=== PATIENT | female | born 1955 | race Caucasian/White ===

== ENCOUNTER 2019-04-06 12:27 | Inpatient (IN) | payer MEDICAID ==
[~2019-04-06] VITALS: Ht 154.9 cm; Wt 67.0 kg
[~2019-04-06 12:27] MED LIST: ACYC800T5 PO; HYDR-906 PO; MECL-77 PO; PRED20TA PO
[2019-04-06] MEDS ORDERED: SOD CHLORIDE 0.9% 1,000 ML IV STA (12:39)
[2019-04-06] MEDS ORDERED: DILTIAZEM 25 MG INJ IV ONE (13:00)
[2019-04-06] MEDS ORDERED: LORAZEPAM 2 MG INJ IV ONE (13:30)
[2019-04-06] MEDS ORDERED: INSULIN LISPRO 100 UNIT/ML VIAL SC STA (14:22)
[2019-04-06] MEDS ORDERED: CEFEPIME 1GM/50 ML (PMX) 50 ML IVPB STA (14:23)
[2019-04-06] MEDS ORDERED: VANCOMYCIN 1 GM (PMX) 250 ML IVPB STA (14:23)
[2019-04-06] MEDS ORDERED: ADENOSINE 6 MG INJ IV STA ×2 (14:26)
[2019-04-06] MEDS ORDERED: ASPI81TA52 PO (14:27)
[2019-04-06] MEDS ORDERED: LOSA50TA14 PO (14:27)
[2019-04-06] MEDS ORDERED: INSU100I12 SQ ×2 (14:27→20:10)
[2019-04-06] MEDS ORDERED: GABA300C16 PO (14:28)
[2019-04-06] MEDS ORDERED: INSU100I27 SQ (14:28)
[2019-04-06] MEDS ORDERED: ESCI10TA PO (14:29)
[2019-04-06] MEDS ORDERED: AMIODARONE 150MG/D5W BOLUS IV* STA (14:42)
[2019-04-06] MEDS ORDERED: DIAZEPAM 5 MG/ML SYG IV ONE (15:30)
[2019-04-06] MEDS ORDERED: ACETAMINOPHEN 325 MG TAB PO PRN (16:00)
[2019-04-06] MEDS ORDERED: ONDANSETRON 4 MG INJ IV PRN (16:00)
--- NOTE | 2019-04-06 16:00 | ERD ---
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 NO TRAUMA. NO NEURO DEFICIT ON ARRIVAL HPI This is a 64-year-old female that presented to the emergency department from an assisted living facility. Patient presented to the emergency department as she had been complaining of dizziness according to nursing staff 1 hour prior to arrival. Vital signs were taken and the patient was tachycardic. When EMS arrived they obtained an EKG tracing that indicated atrial flutter at 165 bpm. The patient denies any chest pain. She has no shortness of breath. She denies any difficulty breathing. The patient has a tobacco history of 15 cigarettes a day. She denies any swelling of her lower extremities. She denies a headache. At this time the patient also denies any dizziness. She states she is hungry and is requesting something to eat. She denies any polyuria or polydipsia ROS All systems reviewed and are negative except as per history of present illness. Medications Home Meds Reported Medications Escitalopram Oxalate* (Lexapro*) 10 Mg Tablet, 10 MG PO DAILY, #30 TAB 04/06/19 Gabapentin* (Gabapentin*) 300 Mg Capsule, 300 MG PO BID, #60 CAP 04/06/19 Insulin Detemir (Levemir Flextouch) 100 Unit/1 Ml Insuln.pen, 42 UNIT SQ QHS, EA 04/06/19 Insulin Lispro (Humalog Kwikpen U-100) 100 Unit/1 Ml Insuln.pen, 15 UNIT SQ BID WITH MEALS, EA 04/06/19 Losartan Potassium* (Losartan Potassium*) 50 Mg Tablet, 50 MG PO DAILY, TAB 04/06/19 Aspirin (Low Dose Aspirin) 81 Mg Tablet.dr, 81 MG PO DAILY, #30 TAB 04/06/19 Discontinued Scripts Meclizine Hcl* (Meclizine Hcl*) 25 Mg Tablet, 25 MG PO Q8H PRN for DIZZINESS for 10 Days, TAB Prov:LENI MASSEY DO 05/17/16 Hydrocodone Bit-Acetaminophen ([place]) 5-325 Mg Tablet, 1 TAB PO Q4H PRN for PAIN, #14 TAB Prov:LENI MASSEY DO 05/17/16 Prednisone* (Prednisone*) 20 Mg Tab, 20 MG PO DAILY for 7 Days, TAB Prov:LENI MASSEY DO 05/17/16 Acyclovir* (Zovirax*) 800 Mg Tablet, 800 MG PO 5 TIMES DAILY for 7 Days, TAB Prov:LENI MASSEY DO 05/17/16 Meclizine Hcl* (Meclizine Hcl*) 25 Mg Tablet, 25 MG PO TID, #20 TAB Prov:LUCIEN ZARATE MD 11/26/15 Allergies Allergies: Coded Allergies: No Known Allergy (Unverified , 04/06/19) PMhx/Soc Hx Miscellaneous Medical Probl: Yes (DM, CATARACTS) Hx Alcohol Use: No Hx Substance Use: No Hx Tobacco Use: No Physical Exam Vitals Vital Signs Date Temp Pulse Resp B/P (MAP) Pulse Ox O2 O2 Flow FiO2 Time Delivery Rate 04/06/19 3.0 14:17 04/06/19 98.2 162 20 104/86 100 12:39 (92) Physical Exam Constitutional:Well-developed. Well-nourished. HEENT:Normocephalic. Atraumatic.Pupils were equal round reactive to light. Moist mucous membranes.No tonsillar exudates. Poor oral dentition Neck: No nuchal rigidity. No lymphadenopathy. No posterior cervical spine tenderness or step-offs. Respiratory: Not using accessory muscles of respiration.Lungs were clear to auscultation bilaterally. No rhonchi. No rales. No wheezing. Cardiovascular: Tachycardic with regular rhythm.No murmurs. No rubs were appreciated.S1, S2 normal. Distal pulses are palpable 2+ bilaterally. GI: Abdomen was soft. Nontender. Non Distended. No pulsatile abdominal masses or bruits. No rebound. No guarding. Bowel sounds were present and normal. Muscle skeletal: Full range of motion of both the upper and lower extremities bilaterally.Normal muscle tone.No assymetrical calf tenderness or swelling. Skin: No petechia, no purpura. No lesions on the palms or the soles of the feet. No maculopapular rash. NEURO: Patient was alert, awake, orientated x3.No facial droop. Gait not observed.Speech had regular rate and rhythm. No focal neurological deficits. Result Diagram: 04/06/19 1248 04/06/19 1248 Results 24 hrs Laboratory Tests Test 04/06/19 12:48 04/06/19 12:57 04/06/19 13:53 04/06/19 15:13 White Blood Count 10.5 10^3/ul Red Blood Count 4.16 10^6/ul Hemoglobin 13.5 g/dl Hematocrit 39.9 % Mean Corpuscular 95.9 fl Volume Mean Corpuscular 32.5 pg Hemoglobin Mean Corpuscular 33.8 g/dl Hemoglobin Concen t Red Cell 13.0 % Distribution Width Platelet Count 226 10^3/UL Mean Platelet 8.8 fl Volume Immature 0.300 % Granulocytes % Neutrophils % 65.2 % Lymphocytes % 24.4 % Monocytes % 7.8 % Eosinophils % 1.5 % Basophils % 0.8 % Nucleated Red 0.0 /100WBC Blood Cells % Immature 0.030 10^3/ul Granulocytes # Neutrophils # 6.9 10^3/ul Lymphocytes # 2.6 10^3/ul Monocytes # 0.8 10^3/ul Eosinophils # 0.2 10^3/ul Basophils # 0.1 10^3/ul Nucleated Red 0.0 10^3/ul Blood Cells # Prothrombin Time 13.0 Sec Prothrombin Time 1.0 Ratio INR International 0.97 Normalized Ratio Activated 29.7 Sec Partial Thrombopl ast Time Sodium Level 135 mmol/L Potassium Level 4.3 mmol/L Chloride Level 102 mmol/L Carbon Dioxide 25 mmol/L Level Anion Gap 8 Blood Urea 27 mg/dl Nitrogen Creatinine 1.02 mg/dl Est Glomerular 54 mL/min Filtrat Rate mL/min Glucose Level 311 mg/dl Calcium Level 9.1 mg/dl Total Bilirubin 0.5 mg/dl Direct Bilirubin 0.00 mg/dl Indirect 0.5 mg/dl Bilirubin Aspartate Amino 20 IU/L Transf (AST/SGOT) Alanine 23 IU/L Aminotransferase (ALT/SGPT) Alkaline 67 IU/L Phosphatase Creatine Kinase 62 IU/L Creatine Kinase 2.0 Index Creatinine Kinase 1.26 ng/ml MB (Mass) Troponin I < 0.012 ng/ml B-Type 2750 PG/ML Natriuretic Peptide Total Protein 6.9 g/dl Albumin 4.0 g/dl Globulin 2.90 g/dl Albumin/Globulin 1.37 Ratio Lipase 136 U/L Salicylates Level 1.9 mg/dl Acetaminophen < 10.0 ug/ml Level Ethyl Alcohol < 10.0 mg/dl Level Bedside Glucose 322 mg/dL Urine Opiates Negative Screen Urine Negative Barbiturates Urine Negative Amphetamines Screen Urine Negative Benzodiazepines Screen Urine Cocaine Negative Screen Urine Negative Cannabinoids Urine Color STRAW Urine Clarity SLIGHTLY CLOUDY Urine pH 5.0 Urine Specific 1.005 [place] Urine Ketones NEGATIVE mg/dL Urine Nitrite NEGATIVE mg/dL Urine Bilirubin NEGATIVE mg/dL Urine NEGATIVE mg/dL Urobilinogen Urine Leukocyte 2+ Park/ul Esterase Urine Microscopic 1 /HPF RBC Urine Microscopic 10 /HPF WBC Urine Squamous FEW /HPF Epithelial Cells Urine Hemoglobin 1+ mg/dL Urine Glucose 2+ mg/dL Urine Total NEGATIVE mg/dl Protein Test 04/06/19 15:40 Bedside Glucose 239 mg/dL Current Medications Medications Dose Sig/Endy Start Time Status Last (Trade) Ordered Route PRN Stop Time Admin Dose Reason Admin Sodium 1,000 ml @ Q1H STAT 04/06/19 DC 04/06/19 Chloride 1,000 mls/hr IV 12:39 13:26 04/06/19 13:38 Diltiazem 20 mg ONCE ONCE 04/06/19 DC 04/06/19 HCl IV 13:00 13:26 (Cardizem Iv) 04/06/19 13:01 Lorazepam 0.5 mg ONCE ONCE 04/06/19 Cancel (Ativan) IV 13:30 04/06/19 13:31 Insulin 5 unit ONCE STAT 04/06/19 DC Human SC 14:22 Lispro 04/06/19 15:45 (Humalog) Cefepime HCl 50 ml @ ONCE STAT 04/06/19 DC 04/06/19 100 mls/hr IVPB 14:23 14:59 04/06/19 14:52 Vancomycin 250 ml @ ONCE STAT 04/06/19 HCl 125 mls/hr IVPB 14:23 04/06/19 16:22 Adenosine 6 mg ONCE STAT 04/06/19 DC 04/06/19 (Adenosine) IV 14:26 14:45 04/06/19 14:28 Adenosine 12 mg ONCE STAT 04/06/19 DC 04/06/19 (Adenosine) IV 14:26 14:55 04/06/19 14:28 Amiodarone 100 ml ONCE STAT 04/06/19 DC 04/06/19 HCl IV* 14:42 14:59 (Cordarone 04/06/19 14:45 150mg/ D5W Bolus) Diazepam 10 mg ONCE ONCE 04/06/19 DC 04/06/19 (Valium) IV 15:30 15:41 04/06/19 15:31 Procedures/MDM This patient was seen and evaluated by myself. The patient presented to the emergency department complaining of dizziness. My differential diagnosis in cluded but was not limited to hypovolemia, myocardial infarction, pulmonary embolism, hypoglycemia, hypoxia, anemia, vasovagal episode, hypothyroidism, anxiety, peripheral or central vertigo. The patient was placed on a monitor and storage bin tender, continuous pulse oximetry and IV access established by nursing staff. An EKG was immediately obtained as the patient was tachycardic upon arrival. 12 Lead EKG tracing ordered and reviewed by myself showed: Sinus tachycardia at 163 bpm and no arrhythmia. ND interval difficult to appreciate as I did not notice P waves. However the EKG machine indicated peer interval was shortened at 88 ms. QRS duration normal. No ST segment elevation No ST segment depression. No changes consistent with acute ischemia. My first EKG was taken at 1232. I administered 20 mg of Cardizem intravenously in order to evaluate for possible atrial flutter with RVR. The patient became hypotensive after but was alert awake and orientated x3. The patient had another large-bore IV catheter placed by nursing staff. She was given a liter bolus of normal saline. Her blood pressure did improve. I repeated the patient's EKG at 1421. At this time it appeared to be a supraven tricular tachycardia ventricular rate was 159 bpm I still do not appreciate P waves. However QRS duration was not completely narrowed as was on the lower end of normal at 90 ms. I did administer 6 mg of adenosine intravenously. This did not change her rhythm. I administered 12 mg of adenosine intravenously. There is no change in the patient's rhythm. The patient had a chest radiograph that showed mild pulmonary vascular congestion. The patient had possible infiltrates that appeared to be more chronic in nature however given her symptoms she will be treated for pneumonia. Blood cultures and urine cultures were obtained. She was started on vancomycin and cefepime she does live in assisted living facility. The patient was hyperglycemic without ketosis. This had been treated with IV fluids. She did not complain of any difficulty breathing. There is no wheezing on auscultation and no rhonchi. Therefore bronchodilators were not given at this time. She did not appear to be fluid overloaded despite giving gentle IV fluid hydration. The patient continued to be tachycardic. There is a tachyarrhythmia and the patient had the persistent tachyarrhythmia with hypotension. Therefore at this time I did perform synchronized cardioversion. The patient was given 5 mg of Valium intravenously for sedation. Given that this appeared to be more of a regular narrow complex the patient received 50 J as the initial synchronized cardioversion. Immediately afterwards the patient appeared to have a normal sinus rhythm. EKG was repeated at 1531. Heart rate was 76 bpm. There is no ST segment elevation or depression. I could not rule out underlying flutter waves. P waves were now appreciated. Interval was [address] Adkins was now at bedside. He will be the admitting physician. I did feel the patient was stable to go the telemetry service. The patient did require supplemental oxygen given 2 L nasal cannula. My suspicion was low for pulmonary embolism. Critical Care: Time: 95 minutes Treatments/Evaluations: Close monitoring and treatment of unstable vital signs, cardiorespiratory, and neurologic status, while maintaining tight balance of fluid, respiratory, and cardiac interventions. Time does not include performing any of the above billable procedures. Departure Diagnosis: Primary Impression: Tachyarrhythmia Additional Impressions: Hyperglycemia without ketosis CHF exacerbation Heart failure type: unspecified Qualified Codes: I50.9 - Heart failure, unspecified Pneumonia Pneumonia type: due to unspecified organism Laterality: bilateral Lung location: unspecified part of lung Qualified Codes: J18.9 - Pneumonia, unspecified organism Condition: Serious LUCIEN ZARATE MD April 06, 2019 15:57
--- NOTE | 2019-04-06 16:20 | HP ---
Date/Time of Note Date/Time of Note DATE: 04/06/19 TIME: 16:06 Assessment/Plan VTE Prophylaxis SCD applied (from Nsg): Yes Pharmacological prophylaxis: heparin Assessment/Plan Hospital Course 64 yo female with DMII and otherwise unclear PMH presents with SVT now s/p DCCV A Flutter: - Confirm rhythm wtih cardiology - Start beta blockers - Likely will require AC - TTE pending DMII - Basal/bolus insulin Pulmonary edema vs ILD; - Lasix, consider chest CT Further evaluation once Versed wears off Result Diagram: 04/06/19 1248 04/06/19 1248 Results 24hrs Laboratory Tests Test 04/06/19 12:48 04/06/19 12:57 04/06/19 13:53 04/06/19 15:13 White Blood Count 10.5 # Red Blood Count 4.16 L Hemoglobin 13.5 Hematocrit 39.9 Mean Corpuscular 95.9 Volume Mean Corpuscular 32.5 Hemoglobin Mean Corpuscular 33.8 Hemoglobin Concen t Red Cell 13.0 Distribution Width Platelet Count 226 Mean Platelet 8.8 # Volume Immature 0.300 Granulocytes % Neutrophils % 65.2 Lymphocytes % 24.4 Monocytes % 7.8 Eosinophils % 1.5 Basophils % 0.8 Nucleated Red 0.0 Blood Cells % Immature 0.030 Granulocytes # Neutrophils # 6.9 Lymphocytes # 2.6 Monocytes # 0.8 Eosinophils # 0.2 Basophils # 0.1 Nucleated Red 0.0 Blood Cells # Prothrombin Time 13.0 Prothrombin Time 1.0 Ratio INR International 0.97 Normalized Ratio Activated 29.7 Partial Thrombopl ast Time Sodium Level 135 Potassium Level 4.3 Chloride Level 102 Carbon Dioxide 25 Level Anion Gap 8 Blood Urea 27 H Nitrogen Creatinine 1.02 H Est Glomerular 54 L Filtrat Rate mL/min Glucose Level 311 H Calcium Level 9.1 Total Bilirubin 0.5 Direct Bilirubin 0.00 Indirect 0.5 Bilirubin Aspartate Amino 20 Transf (AST/SGOT) Alanine 23 Aminotransferase (ALT/SGPT) Alkaline 67 Phosphatase Creatine Kinase 62 Creatine Kinase 2.0 Index Creatinine Kinase 1.26 MB (Mass) Troponin I < 0.012 B-Type 2750 H Natriuretic Peptide Total Protein 6.9 Albumin 4.0 Globulin 2.90 Albumin/Globulin 1.37 Ratio Lipase 136 Salicylates Level 1.9 L Acetaminophen < 10.0 L Level Ethyl Alcohol < 10.0 H Level Bedside Glucose 322 H Urine Opiates Negative Screen Urine Negative Barbiturates Urine Negative Amphetamines Screen Urine Negative Benzodiazepines Screen Urine Cocaine Negative Screen Urine Negative Cannabinoids Urine Color STRAW Urine Clarity SLIGHTLY CLOUDY A Urine pH 5.0 Urine Specific 1.005 [place] Urine Ketones NEGATIVE Urine Nitrite NEGATIVE Urine Bilirubin NEGATIVE Urine NEGATIVE Urobilinogen Urine Leukocyte 2+ H Esterase Urine Microscopic 1 RBC Urine Microscopic 10 H WBC Urine Squamous FEW Epithelial Cells Urine Hemoglobin 1+ H Urine Glucose 2+ H Urine Total NEGATIVE Protein Test 04/06/19 15:40 Bedside Glucose 239 H HPI/ROS Admit Date/Time Admit Date/Time Hx of Present Illness 64 female with unclear medical history who [facility] with dizziness Patient currently sedated and is unable to provide history. She presented with tachycardia at about 150s. Narrow complex and regular, likely A Flutter. She was given adenosine, diltiazem, and then amiodarone without benefit. Finally she was given versed then DCCV to NSR at 70 bpm. Currently sedated and resting comcortably ROS Constitutional: no complaints, improved Eyes: no complaints ENT: no complaints Respiratory: no complaints Cardiovascular: no complaints Gastrointestinal: no complaints Genitourinary: no complaints Musculoskeletal: no complaints Skin: no complaints Neurologic: no complaints Endocrine: no complaints Lymphatic: no complaints Psychological: no complaints, nl mood/affect Immunologic: no complaints PMH/Family/Social Past Medical History Medical History: no pertinent history Medications Current Medications Vancomycin HCl 250 ml @ 125 mls/hr ONCE STAT IVPB Last administered on 04/06/19at 15:53; Admin Dose 125 MLS/HR; Start 04/06/19 at 14:23; Stop 04/06/19 at 16:22 Ondansetron HCl (Zofran Inj) 4 mg ER BRIDGE PRN IV NAUSEA/VOMITING; Start at 16:00; Stop 04/07/19 at 15:59 Acetaminophen (Tylenol Tab) 650 mg ER BRIDGE PRN PO .MILD PAIN 1-3 OR TEMP; Start 04/06/19 at 16:00; Stop 04/07/19 at 15:59 Coded Allergies: No Known Allergy (Unverified , 04/06/19) Past Surgical History Past Surgical Hx: no surgical history Family History Significant Family History: no pertinent family hx Social History Alcohol Use: none Exam/Review of Systems Vital Signs Vitals Vital Signs Date Temp Pulse Resp B/P (MAP) Pulse Ox O2 O2 Flow FiO2 Time Delivery Rate 04/06/19 3.0 14:17 04/06/19 98.2 162 20 104/86 100 12:39 (92) Exam Exam Sedated Comfortable RRR Lungs clear JVD perhpas mildly elevated Abdomen soft nt nd Ext without edema SUSHILA GRIMES MD April 06, 2019 16:20
[2019-04-06] MEDS ORDERED: HYDROCODONE/APAP (5/325) TAB PO PRN (16:30)
[2019-04-06] MEDS ORDERED: NACL 0.9% 3 ML SYG IV SCH (16:30)
[2019-04-06] MEDS ORDERED: GLUCOSE GEL 15 GRAM TUBE BUCCAL PRN (17:30)
[2019-04-06] MEDS ORDERED: DEXTROSE 50% 50 ML SYRINGE IV PRN ×2 (17:30)
[2019-04-06] MEDS ORDERED: GLUCOSE GEL 15 GRAM TUBE PO PRN ×2 (17:30)
[2019-04-06] MEDS ORDERED: GLUCAGON 1 MG INJ IM PRN (17:30)
[2019-04-06 19:40] VITALS: PULSE 82
[2019-04-06 20:00] VITALS: BP 150/90; PULSE 81; PULSE 82; RESP 20
[2019-04-06 20:03] VITALS: Ht 154.9 cm; Wt 67.0 kg
[2019-04-06] MEDS ORDERED: TEMA30CA PO (20:15)
[2019-04-06] MEDS: METOPROLOL 50 MG TAB PO SCH (22:24)
[2019-04-06] MEDS: INSULIN ASPART [NOVOLOG] 3 ML PEN SC SCH ×3 (22:31→22:45)
[2019-04-06] MEDS: INSULIN GLARGINE [LANTus] (100 UNITS/ML) SYG SC SCH (23:31)
[2019-04-06] MEDS ORDERED: TRAZ-111 PO (23:36)
[2019-04-07] VITALS (11 sets, daily range): BP systolic 96–140; BP diastolic 56–69; PULSE 58–88; RESP 18–19
[2019-04-07] MEDS: traZODone 50 MG TAB PO PRN ×2 (00:44→21:02)
[2019-04-07] MEDS ORDERED: PENDING SANTYL ORDER FOR WOUND CARE XX PRN (01:30)
[2019-04-07] MEDS: INSULIN ASPART [NOVOLOG] 3 ML PEN SC SCH ×7 (07:55→20:15)
[2019-04-07] MEDS: ESCITALOPRAM 10 MG TAB PO SCH (08:32)
[2019-04-07] MEDS: LOSARTAN 50 MG TAB PO SCH (08:32)
[2019-04-07] MEDS: METOPROLOL 50 MG TAB PO SCH ×2 (08:32→20:15)
[2019-04-07] MEDS: FUROSEMIDE 20 MG INJ IV SCH ×2 (08:35→18:14)
[2019-04-07] MEDS ORDERED: ENOXAPARIN 30 MG/0.3 ML SYG SC SCH (09:00)
[2019-04-07] MEDS ORDERED: ASPIRIN (EC) 81 MG TAB PO SCH (09:00)
--- NOTE | 2019-04-07 10:00 | CONS ---
Assessment/Plan Assessment/Plan Assessment/Plan (Daily) Aflutter > NSR post cardioversion MIld CHF Possible PNA DM -d/c asa, d/c lovenox -rx eliquis -will review echocardigrom -iv lasix and may d/c in the am if EF normal -abx Consultation Date/Type/Reason Admit Date/Time Type of Consult Cardiology Date/Time of Note DATE: 04/07/19 TIME: 09:56 Hx of Present Illness This is a 64-year-old female that presented to the emergency department from an assisted living facility. Patient presented to the emergency department as she had been complaining of dizziness according to nursing staff 1 hour prior to arrival. Vital signs were taken and the patient was tachycardic. When EMS arrived they obtained an EKG tracing that indicated atrial flutter at 165 bpm. The patient denies any chest pain. She has no shortness of breath. She denies any difficulty breathing. The patient has a tobacco history of 15 cigarettes a day. She denies any swelling of her lower extremities. She denies a headache. At this time the patient also denies any dizziness. She states she is hungry and is requesting something to eat. She denies any polyuria or polydipsia. She has bno cardiac hx and presented wtih 30 mintues of palputations and failed medical therpay to treat the tachycarrythmia so cardivoerted to NSR Past Medical History Home Meds Reported Medications Trazodone Hcl* (Trazodone Hcl*) 50 Mg Tablet, 50 MG PO QHS PRN for INSOMNIA, #30 TAB 04/06/19 Temazepam* (Temazepam*) 30 Mg Capsule, 30 MG PO HS PRN for INSOMNIA, CAP 04/06/19 Insulin Lispro (Humalog Kwikpen U-100) 100 Unit/1 Ml Insuln.pen, 18 UNIT SQ WITH DINNER, EA 04/06/19 Escitalopram Oxalate* (Lexapro*) 10 Mg Tablet, 10 MG PO DAILY, #30 TAB 04/06/19 Gabapentin* (Gabapentin*) 300 Mg Capsule, 300 MG PO BID, #60 CAP 04/06/19 Insulin Detemir (Levemir Flextouch) 100 Unit/1 Ml Insuln.pen, 42 UNIT SQ QHS, EA 04/06/19 Insulin Lispro (Humalog Kwikpen U-100) 100 Unit/1 Ml Insuln.pen, 15 UNIT SQ WITH BREAKFAST, EA 04/06/19 Losartan Potassium* (Losartan Potassium*) 50 Mg Tablet, 50 MG PO DAILY, TAB 04/06/19 Aspirin (Low Dose Aspirin) 81 Mg Tablet.dr, 81 MG PO DAILY, #30 TAB 04/06/19 Discontinued Scripts Meclizine Hcl* (Meclizine Hcl*) 25 Mg Tablet, 25 MG PO Q8H PRN for DIZZINESS for 10 Days, TAB Prov:LENI MASSEY DO 05/17/16 Hydrocodone Bit-Acetaminophen ([place]) 5-325 Mg Tablet, 1 TAB PO Q4H PRN for PAIN, #14 TAB Prov:LENI MASSEY DO 05/17/16 Prednisone* (Prednisone*) 20 Mg Tab, 20 MG PO DAILY for 7 Days, TAB Prov:LENI MASSEY DO 05/17/16 Acyclovir* (Zovirax*) 800 Mg Tablet, 800 MG PO 5 TIMES DAILY for 7 Days, TAB Prov:LENI MASSEY DO 05/17/16 Meclizine Hcl* (Meclizine Hcl*) 25 Mg Tablet, 25 MG PO TID, #20 TAB Prov:LUCIEN ZARATE MD 11/26/15 Medications Current Medications Ondansetron HCl (Zofran Inj) 4 mg ER BRIDGE PRN IV NAUSEA/VOMITING; Start 04/06/19 at 16:00; Stop 04/07/19 at 15:59 Acetaminophen (Tylenol Tab) 650 mg ER BRIDGE PRN PO .MILD PAIN 1-3 OR TEMP; Start 04/06/19 at 16:00; Stop 04/07/19 at 15:59 IV Flush (NS 3 ml) 3 ml PER PROTOCOL IV ; Start 04/06/19 at 16:30 Acetaminophen/ Hydrocodone Bitart ([place] (5/325)) 1 tab Q6H PRN PO .MOD PAIN 4- 6; Start 04/06/19 at 16:30 Enoxaparin Sodium (Lovenox) 30 mg DAILY SC Last administered on 04/07/19at 08:30; Admin Dose 30 MG; Start 04/07/19 at 09:00 Insulin Glargine (Lantus) 11 units DAILY@2000 SC Last administered on 04/06/19at 23:31; Admin Dose 11 UNITS; Start 04/06/19 at 20:00 Insulin Aspart (Novolog Insulin Pen) 4 unit WITH MEALS SC Last administered on 04/07/19at 08:29; Admin Dose 4 UNIT; Start 04/06/19 at 18:00 Insulin Aspart (Novolog Insulin Pen) NOVOLOG *MODERATE* ALGORITHM WITH MEALS BEDTIME SC Last administered on 04/06/19at 22:45; Admin Dose 4 UNIT; Start 04/06/19 at 18:00 Metoprolol Tartrate (Lopressor) 50 mg BID PO Last administered on 04/07/19at 08:32; Admin Dose 50 MG; Start 04/06/19 at 21:00 Aspirin (Halfprin) 81 mg DAILY PO Last administered on 04/07/19 08:32; Admin Dose 81 MG; Start 04/07/19 at 09:00 Escitalopram Oxalate (Lexapro) 10 mg DAILY PO Last administered on 04/07/19at 08:32; Admin Dose 10 MG; Start 04/07/19 at 09:00 Losartan Potassium (Cozaar) 50 mg DAILY PO Last administered on 04/07/19at 08:32; Admin Dose 50 MG; Start 04/07/19 at 09:00 Miscellaneous Information 1 ea NOTE XX ; Start 04/06/19 at 17:30 Glucose (Glutose) 15 gm Q15M PRN PO DECREASED GLUCOSE; Start 04/06/19 at 17:30 Glucose (Glutose) 22.5 gm Q15M PRN PO DECREASED GLUCOSE; Start 04/06/19 at 17:30 Dextrose (D50w Syringe) 25 ml Q15M PRN IV DECREASED GLUCOSE; Start 04/06/19 at 17:30 Dextrose (D50w Syringe) 50 ml Q15M PRN IV DECREASED GLUCOSE; Start 04/06/19 at 17:30 Glucagon (Glucagen) 1 mg Q15M PRN IM DECREASED GLUCOSE; Start 04/06/19 at 17:30 Glucose (Glutose) 15 gm Q15M PRN BUCCAL DECREASED GLUCOSE; Start 04/06/19 at 17:30 Trazodone HCl (Desyrel) 50 mg HS PRN PO INSOMNIA Last administered on 04/07/19at 00:44; Admin Dose 50 MG; Start 04/07/19 at 00:30 Miscellaneous Information (Pending [facility] Order For Wound Care) This patient sam... PRN PRN XX WOUND CARE; Start 04/07/19 at 01:30 Furosemide (Lasix) 20 mg BID DIURETICS IV Last administered on 04/07/19at 08:35; Admin Dose 20 MG; Start 04/07/19 at 08:00 Allergies: Coded Allergies: ibuprofen (Verified Allergy, Mild, nausea/vomiting, 04/06/19) Penicillins (Verified Allergy, Unknown, unknown, 04/06/19) Past Surgical History Past Surgical Hx: no surgical history Social History Alcohol Use: none Smoking Status: Current every day smoker Exam/Review of Systems Vital Signs Vitals Vital Signs Date Temp Pulse Resp B/P (MAP) Pulse Ox O2 O2 Flow FiO2 Time Delivery Rate 04/07/19 69 08:01 04/07/19 98.2 18 110/66 90 07:19 (81) 04/07/19 Nasal 03:42 Cannula 04/06/19 2.0 20:00 Intake and Output 04/06/19 04/06/19 04/07/19 1515:00 23:00 07:00 IntakeIntake Total 300 ml BalanceBalance 300 ml Labs Result Diagram: 04/07/19 0624 04/07/19 0624 Results 24hrs Laboratory Tests Test 04/06/19 12:48 04/06/19 12:57 04/06/19 13:53 04/06/19 15:13 White Blood Count 10.5 # Red Blood Count 4.16 L Hemoglobin 13.5 Hematocrit 39.9 Mean Corpuscular 95.9 Volume Mean Corpuscular 32.5 Hemoglobin Mean Corpuscular 33.8 Hemoglobin Concen t Red Cell 13.0 Distribution Width Platelet Count 226 Mean Platelet 8.8 # Volume Immature 0.300 Granulocytes % Neutrophils % 65.2 Lymphocytes % 24.4 Monocytes % 7.8 Eosinophils % 1.5 Basophils % 0.8 Nucleated Red 0.0 Blood Cells % Immature 0.030 Granulocytes # Neutrophils # 6.9 Lymphocytes # 2.6 Monocytes # 0.8 Eosinophils # 0.2 Basophils # 0.1 Nucleated Red 0.0 Blood Cells # Prothrombin Time 13.0 Prothrombin Time 1.0 Ratio INR International 0.97 Normalized Ratio Activated 29.7 Partial Thrombopl ast Time Sodium Level 135 Potassium Level 4.3 Chloride Level 102 Carbon Dioxide 25 Level Anion Gap 8 Blood Urea 27 H Nitrogen Creatinine 1.02 H Est Glomerular 54 L Filtrat Rate mL/min Glucose Level 311 H Calcium Level 9.1 Total Bilirubin 0.5 Direct Bilirubin 0.00 Indirect 0.5 Bilirubin Aspartate Amino 20 Transf (AST/SGOT) Alanine 23 Aminotransferase (ALT/SGPT) Alkaline 67 Phosphatase Creatine Kinase 62 Creatine Kinase 2.0 Index Creatinine Kinase 1.26 MB (Mass) Troponin I < 0.012 B-Type 2750 H Natriuretic Peptide Total Protein 6.9 Albumin 4.0 Globulin 2.90 Albumin/Globulin 1.37 Ratio Lipase 136 Free Thyroxine 2.41 Index Thyroxine (T4) 6.3 Triiodothyronine 38.2 (T3) Uptake Salicylates Level 1.9 L Acetaminophen < 10.0 L Level Ethyl Alcohol < 10.0 H Level Bedside Glucose 322 H Urine Opiates Negative Screen Urine Negative Barbiturates Urine Negative Amphetamines Screen Urine Negative Benzodiazepines Screen Urine Cocaine Negative Screen Urine Negative Cannabinoids Urine Color STRAW Urine Clarity SLIGHTLY CLOUDY A Urine pH 5.0 Urine Specific 1.005 [place] Urine Ketones NEGATIVE Urine Nitrite NEGATIVE Urine Bilirubin NEGATIVE Urine NEGATIVE Urobilinogen Urine Leukocyte 2+ H Esterase Urine Microscopic 1 RBC Urine Microscopic 10 H WBC Urine Squamous FEW Epithelial Cells Urine Hemoglobin 1+ H Urine Glucose 2+ H Urine Total NEGATIVE Protein Test 04/06/19 15:40 04/06/19 19:54 04/06/19 22:11 04/06/19 23:27 Bedside Glucose 239 H 293 H 306 H 226 H Test 04/07/19 02:25 04/07/19 06:24 04/07/19 08:23 Bedside Glucose 83 134 White Blood Count 8.4 Red Blood Count 3.74 L Hemoglobin 11.9 L Hematocrit 36.5 L Mean Corpuscular 97.6 Volume Mean Corpuscular 31.8 Hemoglobin Mean Corpuscular 32.6 Hemoglobin Concen t Red Cell 13.4 Distribution Width Platelet Count 220 Mean Platelet 9.2 Volume Immature 0.400 Granulocytes % Neutrophils % 59.8 Lymphocytes % 26.9 Monocytes % 9.0 Eosinophils % 3.1 Basophils % 0.8 Nucleated Red 0.0 Blood Cells % Immature 0.030 Granulocytes # Neutrophils # 5.0 Lymphocytes # 2.3 Monocytes # 0.8 Eosinophils # 0.3 Basophils # 0.1 Nucleated Red 0.0 Blood Cells # Sodium Level 140 Potassium Level 4.2 Chloride Level 110 Carbon Dioxide 25 Level Anion Gap 5 Blood Urea 31 H Nitrogen Creatinine 1.10 H Est Glomerular 50 L Filtrat Rate mL/min Glucose Level 115 # Hemoglobin A1c 9.6 H Calcium Level 9.0 Total Bilirubin 0.5 Direct Bilirubin 0.00 Indirect 0.5 Bilirubin Aspartate Amino 15 Transf (AST/SGOT) Alanine 25 Aminotransferase (ALT/SGPT) Alkaline 55 Phosphatase Total Protein 6.2 Albumin 3.6 Globulin 2.60 Albumin/Globulin 1.38 Ratio Thyroid 2.660 Stimulating Hormone (TSH) Medications Medications Current Medications Ondansetron HCl (Zofran Inj) 4 mg ER BRIDGE PRN IV NAUSEA/VOMITING; Start 04/06/19 at 16:00; Stop 04/07/19 at 15:59 Acetaminophen (Tylenol Tab) 650 mg ER BRIDGE PRN PO .MILD PAIN 1-3 OR TEMP; Start 04/06/19 at 16:00; Stop 04/07/19 at 15:59 IV Flush (NS 3 ml) 3 ml PER PROTOCOL IV ; Start 04/06/19 at 16:30 Acetaminophen/ Hydrocodone Bitart ([place] (5/325)) 1 tab Q6H PRN PO .MOD PAIN 4- 6; Start 04/06/19 at 16:30 Enoxaparin Sodium (Lovenox) 30 mg DAILY SC Last administered on 04/07/19at 08:30; Admin Dose 30 MG; Start 04/07/19 at 09:00 Insulin Glargine (Lantus) 11 units DAILY@2000 SC Last administered on 04/06/19at 23:31; Admin Dose 11 UNITS; Start 04/06/19 at 20:00 Insulin Aspart (Novolog Insulin Pen) 4 unit WITH MEALS SC Last administered on 04/07/19 08:29; Admin Dose 4 UNIT; Start 04/06/19 at 18:00 Insulin Aspart (Novolog Insulin Pen) NOVOLOG *MODERATE* ALGORITHM WITH MEALS BEDTIME SC Last administered on 04/06/19at 22:45; Admin Dose 4 UNIT; Start 04/06/19 at 18:00 Metoprolol Tartrate (Lopressor) 50 mg BID PO Last administered on 04/07/19 08:32; Admin Dose 50 MG; Start 04/06/19 at 21:00 Aspirin (Halfprin) 81 mg DAILY PO Last administered on 04/07/19 08:32; Admin Dose 81 MG; Start 04/07/19 at 09:00 Escitalopram Oxalate (Lexapro) 10 mg DAILY PO Last administered on 04/07/19at 08:32; Admin Dose 10 MG; Start 04/07/19 at 09:00 Losartan Potassium (Cozaar) 50 mg DAILY PO Last administered on 04/07/19at 08:32; Admin Dose 50 MG; Start 04/07/19 at 09:00 Miscellaneous Information 1 ea NOTE XX ; Start 04/06/19 at 17:30 Glucose (Glutose) 15 gm Q15M PRN PO DECREASED GLUCOSE; Start 04/06/19 at 17:30 Glucose (Glutose) 22.5 gm Q15M PRN PO DECREASED GLUCOSE; Start 04/06/19 at 17:30 Dextrose (D50w Syringe) 25 ml Q15M PRN IV DECREASED GLUCOSE; Start 04/06/19 at 17:30 Dextrose (D50w Syringe) 50 ml Q15M PRN IV DECREASED GLUCOSE; Start 04/06/19 at 17:30 Glucagon (Glucagen) 1 mg Q15M PRN IM DECREASED GLUCOSE; Start 04/06/19 at 17:30 Glucose (Glutose) 15 gm Q15M PRN BUCCAL DECREASED GLUCOSE; Start 04/06/19 at 17:30 Trazodone HCl (Desyrel) 50 mg HS PRN PO INSOMNIA Last administered on 04/07/19at 00:44; Admin Dose 50 MG; Start 04/07/19 at 00:30 Miscellaneous Information ([facility] This patient sam... PRN PRN XX WOUND CARE; Start 04/07/19 at 01:30 Furosemide (Lasix) 20 mg BID DIURETICS IV Last administered on 04/07/19at 08:35; Admin Dose 20 MG; Start 04/07/19 at 08:00 RODRÍGUEZ ANGULO MD Apr 07, 2019 10:00
--- NOTE | 2019-04-07 10:43 | RADRPT ---
Echocardiogram Report Patient Name: Annie MARQUIStient ID: [id number] : 1955 (64y 1m)Study Date: 04/07/2019 9:07:11 AM Gender: FAccession #: [id number] Tech: Aureliano Pitts [facility] Location: [facility] Ref.Physician: SUSHILA GRIMES Height(Cm): BSA: Weight(Kg): Quality: Technically Difficult StudyOrder Physician: SUSHILA GRIMES Account #: Procedures: Echocardiographic Report: Transthoracic echocardiogram with complete 2D, M-Mode, and doppler examination. Indications: Flutter. Measurements: 2D/M Mode Doppler Measurement Value Normal Range Measurement Value Normal Range LVIDd 2D 3.4 [ 3.8 - 5.2 ] cm AV Peak Avi 1.4 [ 100.0 - 170.0 ] cm/se c LVIDs 2D 2.2 [ 2.2 - 3.5 ] cm AV Peak PG 8.0 [ 2.0 - 9.0 ] mmHg LVPWd 2D 1.2 [ 0.6 - 0.9 ] cm LVOT Peak Avi 1.0 [ 70.0 - 110.0 ] cm/sec IVSd 2D 1.2 [ 0.6 - 0.9 ] cm LVOT Peak PG 4.0 [ 2.0 - 6.0 ] mmHg AoR Diam 2D 2.5 [ 2.3 - 3.1 ] cm MV E Peak Avi 0.8 [ 60.0 - 130.0 ] cm/sec EDV 2D 48.5 [ 46.0 - 106.0 ] ml MV A Peak Avi 0.8 [ 100.0 - 120.0 ] cm/se c ESV 2D 15.7 [ 14.0 - 42.0 ] ml MV E/A 1.1 [ 0.8 - 1.5 ] ratio EF 2D 67.6 [ 54.0 - 74.0 ] percent MV PHT 74.0 [ 20.0 - 100.0 ] msec LA Dimen 2D 3.3 [ 2.7 - 3.8 ] cm MV Decel Time 254 [ 104 - 258 ] msec MV Decel [place] 3 Lat E` Avi 0.1 [ 10.0 - 15.0 ] cm/sec Lateral E/E` 9.0 [ 1.0 - 2.0 ] ratio Med E` Avi 0.1 cm/sec MV E/A 1.1 [ 0.8 - 1.5 ] ratio MVA PHT 3.0 [ 2.0 - 4.0 ] cm2 Findings: Left Ventricle: Normal left ventricular systolic function. Normal left ventricular cavity size. Mild concentric left ventricular hypertrophy. Tissue Doppler/Mitral Doppler indices are within normal limits. Right Ventricle: Normal right ventricular size. Normal right ventricular systolic function. Left Atrium: The left atrium is normal in size. Right Atrium: The right atrium is normal in size. Atrial Septum: Normal atrial septum. Ventricular septum: Normal/intact ventricular septum. Mitral Valve: Normal appearance of the mitral valve. Trace mitral regurgitation. Aortic Valve: Normal appearance of the aortic valve. No aortic regurgitation. Tricuspid Valve: Normal appearance of the tricuspid valve. Unable to obtain RVSP due to minimal presence of tricuspid regurgitation. No evidence of tricuspid regurgitation. Pulmonic Valve: Normal pulmonic valve appearance. No evidence of pulmonic regurgitation. Pericardium: Normal pericardium with no significant pericardial effusion. Aorta: Normal aortic root. IVC: Normal size and normal respiratory collapse consistent with normal right atrial pressure. Conclusions: Normal left ventricular systolic function. Normal left ventricular cavity size. Mild concentric left ventricular hypertrophy. Tissue Doppler/Mitral Doppler indices are within normal limits. Normal appearance of the mitral valve. Trace mitral regurgitation. Normal appearance of the aortic valve. No aortic regurgitation. Normal appearance of the tricuspid valve. Unable to obtain RVSP due to minimal presence of tricuspid regurgitation. No evidence of tricuspid regurgitation. Normal pulmonic valve appearance. No evidence of pulmonic regurgitation. n. Normal pericardium with no significant pericardial effusion. Normal right ventricular size. Normal right ventricular systolic function. The left atrium is normal in size. The right atrium is normal in size. Normal atrial septum. Normal aortic root. Normal size and normal respiratory collapse consistent with normal right atrial pressure. Normal/intact ventricular septum. Electronically Signed By: Tamara Sparrow 2019-04-07 10:43:14 PDT
--- NOTE | 2019-04-07 15:38 | PN ---
Date/Time of Note Date/Time of Note DATE: 04/07/19 TIME: 15:36 Assessment/Plan VTE Prophylaxis Risk score (from Ns)>0 risk: 2 SCD applied (from Ns): Yes Pharmacological prophylaxis: heparin Lines/Catheters IV [facility] [place] Assessment/Plan Hospital Course 64 yo female with DMII whoe presented with SVT now s/p DCCV to NSR A Flutter: - Eliquis - Now in NSR - Metoprolol - TTE normal DMII - Basal/bolus insulin - Will continue to discuss option for oral antiglycemics as she says she is unable to take insulin herslef. However very reluctant to be on orals because did not tolerate in the past Pulmonary edema vs ILD; - Lasix, consider chest CT Further evaluation once Versed wears off Result Diagram: 04/07/1924 04/07/1924 Results 24hrs Laboratory Tests Test 04/06/19 15:40 04/06/19 19:54 04/06/19 22:11 04/06/19 23:27 Bedside Glucose 239 H 293 H 306 H 226 H Test 04/07/19 02:25 04/07/19 06:24 04/07/19 08:23 04/07/19 12:14 Bedside Glucose 83 134 116 White Blood Count 8.4 Red Blood Count 3.74 L Hemoglobin 11.9 L Hematocrit 36.5 L Mean Corpuscular 97.6 Volume Mean Corpuscular 31.8 Hemoglobin Mean Corpuscular 32.6 Hemoglobin Concent Red Cell 13.4 Distribution Width Platelet Count 220 Mean Platelet Volume 9.2 Immature 0.400 Granulocytes % Neutrophils % 59.8 Lymphocytes % 26.9 Monocytes % 9.0 Eosinophils % 3.1 Basophils % 0.8 Nucleated Red Blood 0.0 Cells % Immature 0.030 Granulocytes # Neutrophils # 5.0 Lymphocytes # 2.3 Monocytes # 0.8 Eosinophils # 0.3 Basophils # 0.1 Nucleated Red Blood 0.0 Cells # Sodium Level 140 Potassium Level 4.2 Chloride Level 110 Carbon Dioxide Level 25 Anion Gap 5 Blood Urea Nitrogen 31 H Creatinine 1.10 H Est Glomerular 50 L Filtrat Rate mL/min Glucose Level 115 # Hemoglobin A1c 9.6 H Calcium Level 9.0 Total Bilirubin 0.5 Direct Bilirubin 0.00 Indirect Bilirubin 0.5 Aspartate Amino 15 Transf (AST/SGOT) Alanine 25 Aminotransferase (AL T/SGPT) Alkaline Phosphatase 55 Total Protein 6.2 Albumin 3.6 Globulin 2.60 Albumin/Globulin 1.38 Ratio Thyroid Stimulating 2.660 Hormone (TSH) Subjective 24 Hr Interval Summary Free Text/Dictation Alert and oriented today Doesn't remember ED course yesterday 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 I offered PO meds but she refuses this. Says she has been on oral antiglylcemics previous and did not tolerate them. Only wants to be on insulin. Requests we find somebody to help her take her insulin Exam/Review of Systems Exam Vitals Vital Signs Date Temp Pulse Resp B/P (MAP) Pulse Ox O2 O2 Flow FiO2 Time Delivery Rate 04/07/19 98.2 79 18 140/69 91 15:19 (92) 04/07/19 Nasal 2.0 07:35 Cannula Intake and Output 04/06/19 04/06/19 04/07/19 1515:00 23:00 07:00 IntakeIntake Total 300 ml BalanceBalance 300 ml Constitutional: alert, oriented, well developed Psych: no complaints, nl mood/affect Head: normocephalic, atraumatic Eyes: nl conjunctiva, EOMI, nl lids, nl sclera, PERRL ENMT: nl external ears & nose, nl lips & teeth, nl nasal mucosa & septum Neck: supple, non-tender Respiratory: clear to auscultation, normal air movement Cardiovascular: regular rate and rhythm, nl pulses Gastrointestinal: soft, nl liver, spleen, non-tender Musculoskeletal: nl extremities to inspection, nl gait and stance Extremities: normal pulses Neurological: [employer] II-XII intact, nl mental status, nl speech, nl strength Skin: nl turgor; No rash or lesions Lymph: nl lymph nodes Results Results 24hrs Laboratory Tests Test 04/06/19 15:40 04/06/19 19:54 04/06/19 22:11 04/06/19 23:27 Bedside Glucose 239 H 293 H 306 H 226 H Test 04/07/19 02:25 04/07/19 06:24 04/07/19 08:23 04/07/19 12:14 Bedside Glucose 83 134 116 White Blood Count 8.4 Red Blood Count 3.74 L Hemoglobin 11.9 L Hematocrit 36.5 L Mean Corpuscular 97.6 Volume Mean Corpuscular 31.8 Hemoglobin Mean Corpuscular 32.6 Hemoglobin Concent Red Cell 13.4 Distribution Width Platelet Count 220 Mean Platelet Volume 9.2 Immature 0.400 Granulocytes % Neutrophils % 59.8 Lymphocytes % 26.9 Monocytes % 9.0 Eosinophils % 3.1 Basophils % 0.8 Nucleated Red Blood 0.0 Cells % Immature 0.030 Granulocytes # Neutrophils # 5.0 Lymphocytes # 2.3 Monocytes # 0.8 Eosinophils # 0.3 Basophils # 0.1 Nucleated Red Blood 0.0 Cells # Sodium Level 140 Potassium Level 4.2 Chloride Level 110 Carbon Dioxide Level 25 Anion Gap 5 Blood Urea Nitrogen 31 H Creatinine 1.10 H Est Glomerular 50 L Filtrat Rate mL/min Glucose Level 115 # Hemoglobin A1c 9.6 H Calcium Level 9.0 Total Bilirubin 0.5 Direct Bilirubin 0.00 Indirect Bilirubin 0.5 Aspartate Amino 15 Transf (AST/SGOT) Alanine 25 Aminotransferase (AL T/SGPT) Alkaline Phosphatase 55 Total Protein 6.2 Albumin 3.6 Globulin 2.60 Albumin/Globulin 1.38 Ratio Thyroid Stimulating 2.660 Hormone (TSH) Medications Medication Current Medications Ondansetron HCl (Zofran Inj) 4 mg ER BRIDGE PRN IV NAUSEA/VOMITING; Start 04/06/19 at 16:00; Stop 04/07/19 at 15:59 Acetaminophen (Tylenol Tab) 650 mg ER BRIDGE PRN PO .MILD PAIN 1-3 OR TEMP; Start 04/06/19 at 16:00; Stop 04/07/19 at 15:59 Insulin Glargine (Lantus) 11 units DAILY@2000 SC Last administered on 04/06/19at 23:31; Admin Dose 11 UNITS; Start 04/06/19 at 20:00 Insulin Aspart (Novolog Insulin Pen) 4 unit WITH MEALS SC Last administered on 04/07/19at 12:29; Admin Dose 4 UNIT; Start 04/06/19 at 18:00 Insulin Aspart (Novolog Insulin Pen) NOVOLOG *MODERATE* ALGORITHM WITH MEALS BEDTIME SC Last administered on 04/06/19at 22:45; Admin Dose 4 UNIT; Start 04/06/19 at 18:00 Metoprolol Tartrate (Lopressor) 50 mg BID PO Last administered on 04/07/19at 08:32; Admin Dose 50 MG; Start 04/06/19 at 21:00 Escitalopram Oxalate (Lexapro) 10 mg DAILY PO Last administered on 04/07/19at 08:32; Admin Dose 10 MG; Start 04/07/19 at 09:00 Losartan Potassium (Cozaar) 50 mg DAILY PO Last administered on 04/07/19at 08:32; Admin Dose 50 MG; Start 04/07/19 at 09:00 Miscellaneous Information 1 ea NOTE XX ; Start 04/06/19 at 17:30 Glucose (Glutose) 15 gm Q15M PRN PO DECREASED GLUCOSE; Start 04/06/19 at 17:30 Glucose (Glutose) 22.5 gm Q15M PRN PO DECREASED GLUCOSE; Start 04/06/19 at 17:30 Dextrose (D50w Syringe) 25 ml Q15M PRN IV DECREASED GLUCOSE; Start 04/06/19 at 17:30 Dextrose (D50w Syringe) 50 ml Q15M PRN IV DECREASED GLUCOSE; Start 04/06/19 at 17:30 Glucagon (Glucagen) 1 mg Q15M PRN IM DECREASED GLUCOSE; Start 04/06/19 at 17:30 Glucose (Glutose) 15 gm Q15M PRN BUCCAL DECREASED GLUCOSE; Start 04/06/19 at 17:30 Trazodone HCl (Desyrel) 50 mg HS PRN PO INSOMNIA Last administered on 04/07/19at 00:44; Admin Dose 50 MG; Start 04/07/19 at 00:30 Miscellaneous Information (Pending [facility] Order For Wound Care) This patient sam... PRN PRN XX WOUND CARE; Start 04/07/19 at 01:30 Furosemide (Lasix) 20 mg BID DIURETICS IV Last administered on 04/07/19at 08:35; Admin Dose 20 MG; Start 04/07/19 at 08:00 Apixaban (Eliquis) 5 mg BID PO ; Start 04/07/19 at 21:00 SUSHILA GRIMES MD Apr 07, 2019 15:38
[2019-04-07] MEDS: APIXABAN 5 MG TABLET PO SCH (20:13)
[2019-04-07] MEDS: INSULIN GLARGINE [LANTus] (100 UNITS/ML) SYG SC SCH (20:36)
[2019-04-08] VITALS (13 sets, daily range): BP systolic 105–126; BP diastolic 54–75; PULSE 53–73; RESP 18–20
[2019-04-08] MEDS: FUROSEMIDE 20 MG INJ IV SCH ×2 (06:22→17:46)
[2019-04-08] MEDS: INSULIN ASPART [NOVOLOG] 3 ML PEN SC SCH ×7 (08:54→21:00)
[2019-04-08] MEDS: APIXABAN 5 MG TABLET PO SCH ×2 (09:22→21:19)
[2019-04-08] MEDS: ESCITALOPRAM 10 MG TAB PO SCH (09:22)
[2019-04-08] MEDS: LOSARTAN 50 MG TAB PO SCH (09:23)
[2019-04-08] MEDS: METOPROLOL 50 MG TAB PO SCH ×2 (09:23→21:00)
--- NOTE | 2019-04-08 09:34 | CONS ---
Consultation Date/Type/Reason Admit Date/Time April 06, 2019 at 15:46 Initial Consult Date Type of Consult Cardiology Date/Time of Note DATE: 04/08/19 TIME: 09:33 24 HR Interval Summary Free Text/Dictation Aflutter > NSR post cardioversion on Eliquis echo preserved EF Mild CHF Possible PNA DM Exam/Review of Systems Vital Signs Vitals Vital Signs Date Temp Pulse Resp B/P (MAP) Pulse Ox O2 O2 Flow FiO2 Time Delivery Rate 04/08/19 57 08:01 04/08/19 Nasal 2.0 07:38 Cannula 04/08/19 97.5 19 109/63 93 07:09 (78) Intake and Output 04/07/19 04/07/19 04/08/19 1515:00 23:00 07:00 IntakeIntake Total 600 ml 150 ml BalanceBalance 600 ml 150 ml Exam Constitutional: alert Respiratory: clear to auscultation Cardiovascular: regular rate and rhythm Labs Result Diagram: 04/07/19 0624 04/07/19 0624 Results 24hrs Laboratory Tests Test 04/07/19 12:14 04/07/19 17:32 04/07/19 20:12 04/08/19 02:26 Bedside Glucose 116 167 146 153 Test 04/08/19 08:32 Bedside Glucose 160 Medications Medications Current Medications Insulin Glargine (Lantus) 11 units DAILY@2000 SC Last administered on 04/07/19at 20:36; Admin Dose 11 UNITS; Start 04/06/19 at 20:00 Insulin Aspart (Novolog Insulin Pen) 4 unit WITH MEALS SC Last administered on 04/08/19at 08:54; Admin Dose 4 UNIT; Start 04/06/19 at 18:00 Insulin Aspart (Novolog Insulin Pen) NOVOLOG *MODERATE* ALGORITHM WITH MEALS BEDTIME SC Last administered on 04/08/19at 08:54; Admin Dose 2 UNIT; Start 04/06/19 at 18:00 Metoprolol Tartrate (Lopressor) 50 mg BID PO Last administered on 04/08/19at 09:23; Admin Dose 50 MG; Start 04/06/19 at 21:00 Escitalopram Oxalate (Lexapro) 10 mg DAILY PO Last administered on 04/08/19at 09:22; Admin Dose 10 MG; Start 04/07/19 at 09:00 Losartan Potassium (Cozaar) 50 mg DAILY PO Last administered on 04/08/19at 09:23; Admin Dose 50 MG; Start 04/07/19 at 09:00 Miscellaneous Information 1 ea NOTE XX ; Start 04/06/19 at 17:30 Glucose (Glutose) 15 gm Q15M PRN PO DECREASED GLUCOSE; Start 04/06/19 at 17:30 Glucose (Glutose) 22.5 gm Q15M PRN PO DECREASED GLUCOSE; Start 04/06/19 at 17:30 Dextrose (D50w Syringe) 25 ml Q15M PRN IV DECREASED GLUCOSE; Start 04/06/19 at 17:30 Dextrose (D50w Syringe) 50 ml Q15M PRN IV DECREASED GLUCOSE; Start 04/06/19 at 17:30 Glucagon (Glucagen) 1 mg Q15M PRN IM DECREASED GLUCOSE; Start 04/06/19 at 17:30 Glucose (Glutose) 15 gm Q15M PRN BUCCAL DECREASED GLUCOSE; Start 04/06/19 at 17:30 Trazodone HCl (Desyrel) 50 mg HS PRN PO INSOMNIA Last administered on 04/07/19at 21:02; Admin Dose 50 MG; Start 04/07/19 at 00:30 Miscellaneous Information [facility] This patient sam... PRN PRN XX WOUND CARE; Start 04/07/19 at 01:30 Furosemide (Lasix) 20 mg BID DIURETICS IV Last administered on 04/08/19at 06:22; Admin Dose 20 MG; Start 04/07/19 at 08:00 Apixaban (Eliquis) 5 mg BID PO Last administered on 04/08/19at 09:22; Admin Dose 5 MG; Start 04/07/19 at 21:00 JEANETTE SCHWARTZ MD Apr 08, 2019 09:34
--- NOTE | 2019-04-08 13:04 | PN ---
Date/Time of Note Date/Time of Note DATE: 04/08/19 TIME: 13:03 Assessment/Plan VTE Prophylaxis Risk score (from Nsg)>0 risk: 2 SCD applied (from Nsg): Yes Pharmacological prophylaxis: heparin Lines/Catheters IV Catheter Type (from Nrsg): Saline Lock Assessment/Plan Hospital Course NAD AOX3 RRR CTAB No edema 64 yo female with DMII whoe presented with SVT now s/p DCCV to NSR A Flutter: - Eliquis - Now in NSR - Metoprolol - TTE normal DMII - Basal/bolus insulin - Will continue to discuss option for oral antiglycemics as she says she is unable to take insulin herslef. However very reluctant to be on orals because did not tolerate in the past Pulmonary edema with hypoxia: - Volume status much improved - Lasix PO Dc back to assisted living tomorrow Result Diagram: 04/07/19 0624 04/08/19 1209 Results 24hrs Laboratory Tests Test 04/07/19 17:32 04/07/19 20:12 04/08/19 02:26 04/08/19 08:32 Bedside Glucose 167 146 153 160 Test 04/08/19 11:28 04/08/19 12:09 Bedside Glucose 136 Sodium Level 142 Potassium Level 3.8 Chloride Level 103 Carbon Dioxide Level 31 Anion Gap 8 Blood Urea Nitrogen 36 H Creatinine 1.12 H Est Glomerular Filtrat 49 L Rate mL/min Glucose Level 106 Calcium Level 9.8 Subjective 24 Hr Interval Summary Free Text/Dictation Doing better Again states she is adamantly against PO antiglycemics Breathing comfortably Exam/Review of Systems Exam Vitals Vital Signs Date Temp Pulse Resp B/P (MAP) Pulse Ox O2 O2 Flow FiO2 Time Delivery Rate 04/08/19 98.5 63 19 118/57 96 Room Air 12:09 (77) 04/08/19 2.0 07:38 Intake and Output 04/07/19 04/07/19 04/08/19 1515:00 23:00 07:00 IntakeIntake Total 600 ml 150 ml BalanceBalance 600 ml 150 ml Results Results 24hrs Laboratory Tests Test 04/07/19 17:32 04/07/19 20:12 04/08/19 02:26 04/08/19 08:32 Bedside Glucose 167 146 153 160 Test 04/08/19 11:28 04/08/19 12:09 Bedside Glucose 136 Sodium Level 142 Potassium Level 3.8 Chloride Level 103 Carbon Dioxide Level 31 Anion Gap 8 Blood Urea Nitrogen 36 H Creatinine 1.12 H Est Glomerular Filtrat 49 L Rate mL/min Glucose Level 106 Calcium Level 9.8 Medications Medication Current Medications Insulin Glargine (Lantus) 11 units DAILY@2000 SC Last administered on 04/07/19at 20:36; Admin Dose 11 UNITS; Start 04/06/19 at 20:00 Insulin Aspart (Novolog Insulin Pen) 4 unit WITH MEALS SC Last administered on 04/08/19at 11:33; Admin Dose 4 UNIT; Start 04/06/19 at 18:00 Insulin Aspart (Novolog Insulin Pen) NOVOLOG *MODERATE* ALGORITHM WITH MEALS BEDTIME SC Last administered on 04/08/19at 08:54; Admin Dose 2 UNIT; Start 04/06/19 at 18:00 Metoprolol Tartrate (Lopressor) 50 mg BID PO Last administered on 04/08/19at 09 :23; Admin Dose 50 MG; Start 04/06/19 at 21:00 Escitalopram Oxalate (Lexapro) 10 mg DAILY PO Last administered on 04/08/19at 09:22; Admin Dose 10 MG; Start 04/07/19 at 09:00 Losartan Potassium (Cozaar) 50 mg DAILY PO Last administered on 04/08/19at 09:23; Admin Dose 50 MG; Start 04/07/19 at 09:00 Miscellaneous Information 1 ea NOTE XX ; Start 04/06/19 at 17:30 Glucose (Glutose) 15 gm Q15M PRN PO DECREASED GLUCOSE; Start 04/06/19 at 17:30 Glucose (Glutose) 22.5 gm Q15M PRN PO DECREASED GLUCOSE; Start 04/06/19 at 17:30 Dextrose (D50w Syringe) 25 ml Q15M PRN IV DECREASED GLUCOSE; Start 04/06/19 at 17:30 Dextrose (D50w Syringe) 50 ml Q15M PRN IV DECREASED GLUCOSE; Start 04/06/19 at 17:30 Glucagon (Glucagen) 1 mg Q15M PRN IM DECREASED GLUCOSE; Start 04/06/19 at 17:30 Glucose (Glutose) 15 gm Q15M PRN BUCCAL DECREASED GLUCOSE; Start 5/31/19 at 17:30 Trazodone HCl (Desyrel) 50 mg HS PRN PO INSOMNIA Last administered on 04/07/19at 21:02; Admin Dose 50 MG; Start 04/07/19 at 00:30 Miscellaneous Information (Pending [facility] Order For Wound Care) This patient sam... PRN PRN XX WOUND CARE; Start 04/07/19 at 01:30 Furosemide (Lasix) 20 mg BID DIURETICS IV Last administered on 04/08/19at 06:22; Admin Dose 20 MG; Start 04/07/19 at 08:00 Apixaban (Eliquis) 5 mg BID PO Last administered on 04/08/19at 09:22; Admin Dose 5 MG; Start 04/07/19 at 21:00 SUSHILA GRIMES MD Apr 08, 2019 13:04
[2019-04-08] MEDS: INSULIN GLARGINE [LANTus] (100 UNITS/ML) SYG SC SCH (21:25)
[2019-04-08] MEDS: traZODone 50 MG TAB PO PRN ×2 (23:16→23:34)
[2019-04-09] VITALS (8 sets, daily range): BP systolic 119–130; BP diastolic 58–62; PULSE 53–66; RESP 18–20
[2019-04-09] MEDS: FUROSEMIDE 20 MG INJ IV SCH (06:37)
[2019-04-09] MEDS: INSULIN ASPART [NOVOLOG] 3 ML PEN SC SCH ×4 (07:55→11:56)
[2019-04-09] MEDS: ESCITALOPRAM 10 MG TAB PO SCH (08:42)
[2019-04-09] MEDS: APIXABAN 5 MG TABLET PO SCH (08:42)
[2019-04-09] MEDS: METOPROLOL 50 MG TAB PO SCH (08:43)
[2019-04-09] MEDS: LOSARTAN 50 MG TAB PO SCH (08:44)
[2019-04-09] MEDS ORDERED: APIX5TAB PO (12:32)
[2019-04-09] MEDS ORDERED: METO-319 PO (12:32)
--- NOTE | 2019-04-09 14:24 | DS ---
Date/Time of Note Date/Time of Note DATE: 04/09/19 TIME: 14:23 Discharge Summary Admission/Discharge Info Admit Date/Time April 06, 2019 at 15:46 Discharge Date/Time Apr 09, 2019 at 13:05 Discharge Diagnosis Atrial flutter Patient Condition: Stable Hx of Present Illness 64 female with unclear medical history who presented from correction with dizz iness Patient currently sedated and is unable to provide history. She presented with tachycardia at about 150s. Narrow complex and regular, likely A Flutter. She was given adenosine, diltiazem, and then amiodarone without benefit. Finally she was given versed then DCCV to NSR at 70 bpm. Currently sedated and resting comcortably Hospital Course 64 yo female with DMII whoe presented with SVT. Arrythmia did respond to adenosine, diltiazem or amiod so she underwent DCCV to NSR. She remained in NSR following this. TTE showed normal cardiac function. She was prescribed metoprolol and Eliquis at discharge. She was in mild CHF and underwent diuresis. She was extensively counseled on insulin adherence to manage DMII Home Meds Active Scripts Apixaban* (Eliquis*) 5 Mg Tablet, 5 MG PO BID for 90 Days, #45 TAB 3 Refills Prov:SUSHILA GRIMES MD 04/09/19 Metoprolol Succinate* (Toprol XL*) 50 Mg Tab.er.24h, 50 MG PO DAILY for 90 Days, #90 TAB Prov:SUSHILA GRIMES MD 04/09/19 Reported Medications Trazodone Hcl* (Trazodone Hcl*) 50 Mg Tablet, 50 MG PO QHS PRN for INSOMNIA, #30 TAB 04/06/19 Temazepam* (Temazepam*) 30 Mg Capsule, 30 MG PO HS PRN for INSOMNIA, CAP 04/06/19 Insulin Lispro (Humalog Kwikpen U-100) 100 Unit/1 Ml Insuln.pen, 18 UNIT SQ WITH DINNER, EA 04/06/19 Escitalopram Oxalate* (Lexapro*) 10 Mg Tablet, 10 MG PO DAILY, #30 TAB 04/06/19 Gabapentin* (Gabapentin*) 300 Mg Capsule, 300 MG PO BID, #60 CAP 04/06/19 Insulin Detemir (Levemir Flextouch) 100 Unit/1 Ml Insuln.pen, 42 UNIT SQ QHS, EA 04/06/19 Insulin Lispro (Humalog Kwikpen U-100) 100 Unit/1 Ml Insuln.pen, 15 UNIT SQ WITH BREAKFAST, EA 04/06/19 Losartan Potassium* (Losartan Potassium*) 50 Mg Tablet, 50 MG PO DAILY, TAB 04/06/19 Discontinued Reported Medications Aspirin (Low Dose Aspirin) 81 Mg Tablet.dr, 81 MG PO DAILY, #30 TAB 04/06/19 Discontinued Scripts Meclizine Hcl* (Meclizine Hcl*) 25 Mg Tablet, 25 MG PO Q8H PRN for DIZZINESS for 10 Days, TAB Prov:LENI MASSEY DO 05/17/16 Hydrocodone Bit-Acetaminophen ([place]) 5-325 Mg Tablet, 1 TAB PO Q4H PRN for PAIN, #14 TAB Prov:LENI MASSEY DO 05/17/16 Prednisone* (Prednisone*) 20 Mg Tab, 20 MG PO DAILY for 7 Days, TAB Prov:LENI MASSEY DO 05/17/16 Acyclovir* (Zovirax*) 800 Mg Tablet, 800 MG PO 5 TIMES DAILY for 7 Days, TAB Prov:LENI MASSEY DO 05/17/16 Meclizine Hcl* (Meclizine Hcl*) 25 Mg Tablet, 25 MG PO TID, #20 TAB Prov:LUCIEN ZARATE MD 11/26/15 Primary Care Provider Care Physician No Primary Pending Labs Laboratory Tests Test 04/08/19 17:37 04/08/19 21:18 04/09/19 08:10 04/09/19 11:50 Bedside 160 141 120 266 Glucose mg/dL (70-220) mg/dL (70-220) mg/dL (70-220) mg/dL (70-220) SUSHILA GRIMES MD Apr 09, 2019 14:24
== END 2019-04-09 13:05 | disposition home or self-care (01) | DRG 308 ==
LOC: E/R 12:27 → SUATTDRO 15:31 → TEL 15:46
PROVIDERS: ADMIT Internal Medicine; ATTEND Internal Medicine
PROC: 5A2204Z Restoration of Cardiac Rhythm, Single (ICD-10-PCS; principal; 2019-04-06)
DX: I48.92 Unspecified atrial flutter (principal); J18.9 Pneumonia, unspecified organism; I50.33 Acute on chronic diastolic (congestive) heart failure; J81.1 Chronic pulmonary edema; Z72.0 Tobacco use; R73.9 Hyperglycemia, unspecified; E11.9 Type 2 diabetes mellitus without complications; R09.02 Hypoxemia; I95.9 Hypotension, unspecified
CPT/HCPCS: 71045; 80048; 80053; 80307; 81001; 82550; 82553; 82962; 83036; 83690; 83880; 84436; 84443; 84479; 84484; 85025; 85610; 85730; 87086; 93005; 93306; 96374; 96375; J0153; J0282; J0692; J1650; J1815; J1940; J2060; J3360; J3370; J7030

== ENCOUNTER 2019-04-29 21:14 | Inpatient (IN) | payer MEDICAID ==
[~2019-04-29] VITALS: Ht 154.9 cm; Wt 66.7 kg
[~2019-04-29 21:14] MED LIST changes: -ACYC800T5 PO; +APIX5TAB PO; +ESCI10TA PO; +GABA300C16 PO; -HYDR-906 PO; +INSU100I12 SQ; +INSU100I27 SQ; +LOSA50TA14 PO; -MECL-77 PO; +METO-319 PO; -PRED20TA PO; +TEMA30CA PO; +TRAZ-111 PO
[2019-04-29] MEDS ORDERED: NITROGLYCERIN 2% 1 GM OINT PKT TD STA (22:25)
[2019-04-29] MEDS ORDERED: ONDANSETRON 4 MG INJ IV PRN (23:30)
[2019-04-29] MEDS ORDERED: ACETAMINOPHEN 325 MG TAB PO PRN (23:30)
--- NOTE | 2019-04-29 23:31 | ERD ---
ER Documentation Chief Complaint Chief Complaint bib ra from assisted living for cp, given nitro en-route, HPI This is a 64-year-old patient with a history of diabetes hypertension who was sent from [facility] for substernal chest pressure. The patient says she had some substernal chest pain off and on today that became more constant so she told the staff they called paramedics who arrived and gave the patient some sublingual nitroglycerin in route which relieved her pain completely. Patient is currently pain-free. That she did not have any radiation of pain she had some mild nausea no shortness of breath no pain in the neck shoulders back or abdomen. ROS All systems reviewed and are negative except as per history of present illness. Medications Home Meds Active Scripts Apixaban* (Eliquis*) 5 Mg Tablet, 5 MG PO BID for 90 Days, #45 TAB 3 Refills Prov:SUSHILA GRIMES MD 04/09/19 Metoprolol Succinate* (Toprol XL*) 50 Mg Tab.er.24h, 50 MG PO DAILY for 90 Days, #90 TAB Prov:SUSHILA GRIMES MD 04/09/19 Reported Medications Trazodone Hcl* (Trazodone Hcl*) 50 Mg Tablet, 50 MG PO QHS PRN for INSOMNIA, #30 TAB 04/06/19 Temazepam* (Temazepam*) 30 Mg Capsule, 30 MG PO HS PRN for INSOMNIA, CAP 04/06/19 Insulin Lispro (Humalog Kwikpen U-100) 100 Unit/1 Ml Insuln.pen, 18 UNIT SQ WITH DINNER, EA 04/06/19 Escitalopram Oxalate* (Lexapro*) 10 Mg Tablet, 10 MG PO DAILY, #30 TAB 04/06/19 Gabapentin* (Gabapentin*) 300 Mg Capsule, 300 MG PO BID, #60 CAP 04/06/19 Insulin Detemir (Levemir Flextouch) 100 Unit/1 Ml Insuln.pen, 42 UNIT SQ QHS, EA 04/06/19 Insulin Lispro (Humalog Kwikpen U-100) 100 Unit/1 Ml Insuln.pen, 15 UNIT SQ WITH BREAKFAST, EA 04/06/19 Losartan Potassium* (Losartan Potassium*) 50 Mg Tablet, 50 MG PO DAILY, TAB 04/06/19 Allergies Allergies: Coded Allergies: ibuprofen (Verified Allergy, Mild, nausea/vomiting, 04/06/19) Penicillins (Verified Allergy, Unknown, unknown, 04/06/19) PMhx/Soc History of Surgery: No Anesthesia Reaction: No Hx Neurological Disorder: Yes (NEUROPATHY) Hx Respiratory Disorders: Yes (COPD) Hx Cardiac Disorders: Yes (SVT ) Hx Psychiatric Problems: No Hx Alcohol Use: No Hx Substance Use: No Hx Tobacco Use: No Smoking Status: Never smoker FmHx Family History: No coronary disease Physical Exam Vitals Vital Signs Date Temp Pulse Resp B/P (MAP) Pulse Ox O2 O2 Flow FiO2 Time Delivery Rate 04/29/19 98.7 81 19 144/89 100 21:22 (107) Physical Exam Const: Well-developed, well-nourished Head: Atraumatic, normocephalic Eyes: Normal Conjunctiva, PERRLA, EOMI, normal sclera, no nystagmus ENT: Normal External Ears, Nose and Mouth, moist mucus membranes. Neck: Full range of motion. No meningismus, no lymphadenopathy. Resp: Clear to auscultation bilaterally, no wheezing, rhonchi, rales Cardio: Regular rate and rhythm, no murmurs, S1 S2 present Abd: Soft, non tender x 4, non distended. Normal bowel sounds, no guarding or rebound, no pulsitile abdominal masses or bruits Skin: No petechiae or rashes, no ecchymosis , no maculopapular rash Back: No midline or flank tenderness Ext: No cyanosis, or edema, FROM x 4, normal inspection, neurovascularly intact x 4 Neur: Awake and alert, STR 5/5 x 4, sensation intact x 4, no focal findings, cerebellum intact Psych: Normal Mood and Affect Result Diagram: 04/29/19213704/29/192137 Results 24 hrs Laboratory Tests Test 04/29/19 21:38 White Blood Count 10.5 10^3/ul Red Blood Count 3.98 10^6/ul Hemoglobin 12.8 g/dl Hematocrit 38.5 % Mean Corpuscular Volume 96.7 fl Mean Corpuscular Hemoglobin 32.2 pg Mean Corpuscular Hemoglobin Concent 33.2 g/dl Red Cell Distribution Width 12.3 % Platelet Count 201 10^3/UL Mean Platelet Volume 8.9 fl Immature Granulocytes % 0.500 % Neutrophils % 77.0 % Lymphocytes % 13.5 % Monocytes % 8.5 % Eosinophils % 0.1 % Basophils % 0.4 % Nucleated Red Blood Cells % 0.0 /100WBC Immature Granulocytes # 0.050 10^3/ul Neutrophils # 8.1 10^3/ul Lymphocytes # 1.4 10^3/ul Monocytes # 0.9 10^3/ul Eosinophils # 0.0 10^3/ul Basophils # 0.0 10^3/ul Nucleated Red Blood Cells # 0.0 10^3/ul Prothrombin Time 13.4 Sec Prothrombin Time Ratio 1.0 INR International Normalized Ratio 1.01 Activated Partial Thromboplast Time 31.1 Sec Sodium Level 136 mmol/L Potassium Level 3.9 mmol/L Chloride Level 98 mmol/L Carbon Dioxide Level 30 mmol/L Anion Gap 8 Blood Urea Nitrogen 25 mg/dl Creatinine 1.06 mg/dl Est Glomerular Filtrat Rate mL/min 52 mL/min Glucose Level 224 mg/dl Calcium Level 9.2 mg/dl Total Bilirubin 0.5 mg/dl Direct Bilirubin 0.00 mg/dl Indirect Bilirubin 0.5 mg/dl Aspartate Amino Transf (AST/SGOT) 18 IU/L Alanine Aminotransferase (ALT/SGPT) 23 IU/L Alkaline Phosphatase 75 IU/L Troponin I < 0.012 ng/ml Total Protein 7.4 g/dl Albumin 4.0 g/dl Globulin 3.40 g/dl Albumin/Globulin Ratio 1.17 Lipase 80 U/L Current Medications Medications Dose Sig/Endy Start Time Status Last (Trade) Ordered Route PRN Stop Time Admin Dose Reason Admin 1 inch ONCE STAT 04/29/19 DC Nitroglycerin TD 22:25 04/29/19 22:28 (Nitroglyceri n 2% Oint) Procedures/MDM EKG: Rate/Rhythm: Normal Sinus Rhythm,NL intervals QRS, ST, QT: NORMAL CO, QRS, QT] Impression: NORMAL EKG Cardiac Admit MDM: Patient's symptoms are concerning for cardiac cause will require inpatient workup and continuous monitoring. Further w/u for ischemia, arrhythmia, PE or dissection will be deferred to the inpatient team. Departure Diagnosis: Primary Impression: Chest pain Chest pain type: unspecified Qualified Codes: R07.9 - Chest pain, unspecified Condition: Stable SANTANA ANGELO DO Apr 29, 2019 23:31
[2019-04-30] VITALS (11 sets, daily range): BP systolic 128–161; BP diastolic 68–76; PULSE 79–97; RESP 17–20; Ht 154.9 cm; Wt 66.7 kg
[2019-04-30] MEDS ORDERED: ALBUTEROL/IPRATROPIUM (NEB) 3 ML AMP HHN PRN (02:00)
[2019-04-30] MEDS ORDERED: traZODone 50 MG TAB PO PRN (02:00)
[2019-04-30] MEDS ORDERED: NITROGLYCERIN (SL) 0.4 MG TAB SL PRN (02:00)
[2019-04-30] MEDS ORDERED: ONDANSETRON 4 MG INJ IV PRN (02:00)
[2019-04-30] MEDS ORDERED: NACL 0.9% 3 ML SYG IV SCH (02:00)
[2019-04-30] MEDS ORDERED: ACETAMINOPHEN 325 MG TAB PO PRN (02:00)
[2019-04-30] MEDS: ACCU-CHEK XX SCH (02:23)
[2019-04-30] MEDS ORDERED: GLUCAGON 1 MG INJ IM PRN (02:30)
[2019-04-30] MEDS ORDERED: GLUCOSE GEL 15 GRAM TUBE BUCCAL PRN (02:30)
[2019-04-30] MEDS ORDERED: GLUCOSE GEL 15 GRAM TUBE PO PRN ×2 (02:30)
[2019-04-30] MEDS ORDERED: DEXTROSE 50% 50 ML SYRINGE IV PRN ×2 (02:30)
[2019-04-30] MEDS ORDERED: ZOLPIDEM 5 MG TAB PO PRN (02:30)
--- NOTE | 2019-04-30 05:01 | HP ---
Date/Time of Note Date/Time of Note DATE: 04/30/19 TIME: 04:55 Assessment/Plan VTE Prophylaxis Pharmacological prophylaxis: apixaban Lines/Catheters IV Catheter Type (from Nrs): Saline Lock Urinary Cath still in place: No Assessment/Plan Assessment/Plan 1. Chest pain: Rule out ACS -Status post NTG by EMS with complete resolution of chest pain -First troponin is negative and EKG without ST-T wave abnormalities -Telemetry monitoring -Supplemental oxygen, aspirin, beta-romel, as needed nitro -Continue home Eliquis -Patient recently had a normal 2D echo less than a month ago 2. SIRS, with fever and tachycardia -UA, urine culture and blood culture -Empiric antibiotic 3. Recent SVT, status post cardioversion 3 weeks ago -Currently in sinus rhythm -Continue beta-romel 4. Type 1 diabetes with hyperglycemia: No DKA -Continue insulin. Adjust as needed 5. History of COPD: Supplemental oxygen and bronchodilators as needed 6. Depression: Continue home med Result Diagram: 04/30/1921704/30/19 0218 Results 24hrs Laboratory Tests Test 04/29/19 21:38 04/30/19 02:17 04/30/19 02:18 White Blood Count 10.5 # 9.9 Red Blood Count 3.98 L 3.86 L Hemoglobin 12.8 12.6 Hematocrit 38.5 37.2 Mean Corpuscular Volume 96.7 96.4 Mean Corpuscular Hemoglobin 32.2 32.6 Mean Corpuscular Hemoglobin Concent 33.2 33.9 Red Cell Distribution Width 12.3 12.4 Platelet Count 201 190 Mean Platelet Volume 8.9 8.7 Immature Granulocytes % 0.500 H 0.200 Neutrophils % 77.0 75.0 Lymphocytes % 13.5 L 12.6 L Monocytes % 8.5 11.7 H Eosinophils % 0.1 0.0 Basophils % 0.4 0.5 Nucleated Red Blood Cells % 0.0 0.0 Immature Granulocytes # 0.050 H 0.020 Neutrophils # 8.1 H 7.4 Lymphocytes # 1.4 1.3 Monocytes # 0.9 1.2 H Eosinophils # 0.0 0.0 Basophils # 0.0 0.1 Nucleated Red Blood Cells # 0.0 0.0 Prothrombin Time 13.4 Prothrombin Time Ratio 1.0 INR International Normalized Ratio 1.01 Activated Partial Thromboplast Time 31.1 Sodium Level 136 138 Potassium Level 3.9 4.2 Chloride Level 98 101 Carbon Dioxide Level 30 27 Anion Gap 8 10 Blood Urea Nitrogen 25 H 25 H Creatinine 1.06 H 1.00 Est Glomerular Filtrat Rate mL/min 52 L 55 L Glucose Level 224 H 230 H Calcium Level 9.2 8.9 Total Bilirubin 0.5 0.6 Direct Bilirubin 0.00 0.00 Indirect Bilirubin 0.5 0.6 Aspartate Amino Transf (AST/SGOT) 18 15 Alanine Aminotransferase (ALT/SGPT) 23 25 Alkaline Phosphatase 75 78 Troponin I < 0.012 < 0.012 Total Protein 7.4 6.9 Albumin 4.0 3.9 Globulin 3.40 H 3.00 Albumin/Globulin Ratio 1.17 1.30 Lipase 80 Bedside Glucose 233 H Magnesium Level 2.2 Creatine Kinase 35 Creatine Kinase Index 0.6 Creatinine Kinase MB (Mass) < 0.22 HPI/ROS Admit Date/Time Admit Date/Time Apr 29, 2019 at 23:29 Hx of Present Illness Patient is a 64-year-old female with a history of type 1 diabetes, COPD, depression, SVT status post recent cardioversion. Patient was brought from [facility] for a chest pain. Patient was given NTG by EMS with complete resolution of chest pain. Patient was admitted here about 3 weeks ago for SVT, which did not respond to medical management. She had cardioversion with conversion to NSR. When she presented to ER today, vitals were stable. Was admitted to telemetry unit however, patient became febrile with a temperature as high as 102.3. Chest x-ray shows shallow inspiration with minimal right basilar subsegmental atelectasis. PMH/Family/Social Past Medical History Medical History: other (See HPI) Medications Current Medications Acetaminophen (Tylenol Tab) 650 mg ER BRIDGE PRN PO .MILD PAIN 1-3 OR TEMP Last administered on 04/30/19at 02:12; Admin Dose 650 MG; Start 04/29/19 at 23:30; Stop 04/30/19 at 23:29 IV Flush (NS 3 ml) 3 ml PER PROTOCOL IV ; Start 04/30/19 at 02:00 Ondansetron HCl (Zofran Inj) 4 mg Q6H PRN IV NAUSEA/VOMITING; Start 04/30/19 at 02:00 Nitroglycerin (Nitroglycerin (Sl Tab) 0.4 Mg) 1 tab Q5M PRN SL .CHEST PAIN; Start 04/30/19 at 02:00 Acetaminophen (Tylenol Tab) 650 mg Q6H PRN PO .PAIN 1-3 OR TEMP; Start 04/30/19 at 02:00 Albuterol/ Ipratropium (Duoneb) 3 ml Q2H RESP THERAPY PRN HHN SHORTNESS OF BREATH; Start 04/30/19 at 02:00 Apixaban (Eliquis) 5 mg BID PO ; Start 04/30/19 at 09:00 Escitalopram Oxalate (Lexapro) 10 mg DAILY PO ; Start 04/30/19 at 09:00 Gabapentin (Neurontin) 300 mg BID PO ; Start 04/30/19 at 09:00 Insulin Glargine (Lantus) 42 units DAILY@2000 SC ; Start 04/30/19 at 20:00 Losartan Potassium (Cozaar) 50 mg DAILY PO ; Start 04/30/19 at 09:00 Metoprolol Succinate (Toprol Xl) 50 mg DAILY PO ; Start 04/30/19 at 09:00 Trazodone HCl (Desyrel) 50 mg QHS PRN PO INSOMNIA; Start 04/30/19 at 02:00 Zolpidem Tartrate (Ambien) 5 mg HS MAY REPEAT X 1 PRN PO INSOMNIA; Start 04/30/19 at 02:30 Diagnostic Test (Pha) (Accu-Chek) 1 ea 02 XX Last administered on 04/30/19at 02:23; Admin Dose 1 EA; Start 04/30/19 at 02:00 Insulin Aspart (Novolog Insulin Pen) 7 unit WITH MEALS SC ; Start 04/30/19 at 07:55 Insulin Aspart (Novolog Insulin Pen) NOVOLOG *MODERATE* ALGORITHM WITH MEALS BEDTIME SC ; Start 04/30/19 at 07:55 Miscellaneous Information 1 ea NOTE XX ; Start 04/30/19 at 02:30 Glucose (Glutose) 15 gm Q15M PRN PO DECREASED GLUCOSE; Start 04/30/19 at 02:30 Glucose (Glutose) 22.5 gm Q15M PRN PO DECREASED GLUCOSE; Start 04/30/19 at 02:30 Dextrose (D50w Syringe) 25 ml Q15M PRN IV DECREASED GLUCOSE; Start 04/30/19 at 02:30 Dextrose (D50w Syringe) 50 ml Q15M PRN IV DECREASED GLUCOSE; Start 04/30/19 at 02:30 Glucagon (Glucagen) 1 mg Q15M PRN IM DECREASED GLUCOSE; Start 04/30/19 at 02:30 Glucose (Glutose) 15 gm Q15M PRN BUCCAL DECREASED GLUCOSE; Start 04/30/19 at 02:30 Coded Allergies: ibuprofen (Verified Allergy, Mild, nausea/vomiting, 04/06/19) Penicillins (Verified Allergy, Unknown, unknown, 04/06/19) Past Surgical History Past Surgical Hx: other (See HPI) Family History Significant Family History: no pertinent family hx Social History Alcohol Use: none Smoking Status: Current every day smoker Drug Use: none Exam/Review of Systems Vital Signs Vitals Vital Signs Date Temp Pulse Resp B/P (MAP) Pulse Ox O2 O2 Flow FiO2 Time Delivery Rate 04/30/19 100.3 03:20 04/30/19 90 01:28 04/30/19 18 153/68 94 Room Air 01:22 (96) Exam Constitutional: other (No acute distress) Head: normocephalic, atraumatic Eyes: EOMI, PERRL Respiratory: clear to auscultation, normal air movement Cardiovascular: regular rate and rhythm, nl pulses Gastrointestinal: soft, non-tender Extremities: normal pulses VERONICA VIVAR MD Apr 30, 2019 05:01
[2019-04-30] MEDS ORDERED: NON-FORMULARY/PATIENT OWN MED (Insulin Lispro (Humalog Kwikpen U-100) 15 UNIT) SQ SCH (07:55)
[2019-04-30] MEDS: ESCITALOPRAM 10 MG TAB PO SCH (08:26)
[2019-04-30] MEDS: APIXABAN 5 MG TABLET PO SCH ×2 (08:26→20:31)
[2019-04-30] MEDS: GABAPENTIN 300 MG CAP PO SCH ×2 (08:26→20:31)
[2019-04-30] MEDS: METOPROLOL (XL) 50 MG TAB PO SCH (08:27)
[2019-04-30] MEDS: LOSARTAN 50 MG TAB PO SCH (08:28)
[2019-04-30] MEDS: INSULIN ASPART [NOVOLOG] 3 ML PEN SC SCH ×7 (10:17→21:26)
--- NOTE | 2019-04-30 11:10 | PN ---
Date/Time of Note Date/Time of Note DATE: 04/30/19 TIME: 11:10 Assessment/Plan VTE Prophylaxis SCD applied (from Nsg): Yes Pharmacological prophylaxis: apixaban Lines/Catheters IV Catheter Type (from Nrsg): Saline Lock Urinary Cath still in place: No Assessment/Plan Assessment/Plan 1. Acute chest pain, resolved - patient with negative serial troponins - EKG without any ST changes - continue aspirin, statin, and BB - ECHO nl last month 2. SIRS, with fever and tachycardia - complaining of diarrhea and may have gastroenteritis. stool studies ordered - supportive care - blood and urine cultures ordered - will start empiric treatment for GI source 3. Tachyarrhythmia - recent admission for SVT s/p cardioversion - episode of tachycardia today - will adjust BB as needed. If persists will consult cardiology - Continue on Eliquis 4. Type 1 diabetes with hyperglycemia - uncontrolled. A1c from earlier this month noted - Insulin and adjust as needed 5. History of COPD - O2 as needed - Nebs PRN - no acute exacerbation noted 6. Depression - Continue home med 7. Disposition - Monitor HR given episode of tachycardia this afternoon. Will consult Cardiology if persists - Brown cultures ordered and results pending. Once stable, will d/c Result Diagram: 04/30/19 0218 04/30/19 0218 Results 24hrs Laboratory Tests Test 04/29/19 21:38 04/30/19 02:17 04/30/19 02:18 04/30/19 07:56 White Blood Count 10.5 # 9.9 Red Blood Count 3.98 L 3.86 L Hemoglobin 12.8 12.6 Hematocrit 38.5 37.2 Mean Corpuscular 96.7 96.4 Volume Mean Corpuscular 32.2 32.6 Hemoglobin Mean Corpuscular 33.2 33.9 Hemoglobin Concent Red Cell 12.3 12.4 Distribution Width Platelet Count 201 190 Mean Platelet Volume 8.9 8.7 Immature 0.500 H 0.200 Granulocytes % Neutrophils % 77.0 75.0 Lymphocytes % 13.5 L 12.6 L Monocytes % 8.5 11.7 H Eosinophils % 0.1 0.0 Basophils % 0.4 0.5 Nucleated Red Blood 0.0 0.0 Cells % Immature 0.050 H 0.020 Granulocytes # Neutrophils # 8.1 H 7.4 Lymphocytes # 1.4 1.3 Monocytes # 0.9 1.2 H Eosinophils # 0.0 0.0 Basophils # 0.0 0.1 Nucleated Red Blood 0.0 0.0 Cells # Prothrombin Time 13.4 Prothrombin Time 1.0 Ratio INR International 1.01 Normalized Ratio Activated 31.1 Partial Thromboplast Time Sodium Level 136 138 Potassium Level 3.9 4.2 Chloride Level 98 101 Carbon Dioxide Level 30 27 Anion Gap 8 10 Blood Urea Nitrogen 25 H 25 H Creatinine 1.06 H 1.00 Est Glomerular 52 L 55 L Filtrat Rate mL/min Glucose Level 224 H 230 H Calcium Level 9.2 8.9 Total Bilirubin 0.5 0.6 Direct Bilirubin 0.00 0.00 Indirect Bilirubin 0.5 0.6 Aspartate Amino 18 15 Transf (AST/SGOT) Alanine 23 25 Aminotransferase (AL T/SGPT) Alkaline Phosphatase 75 78 Troponin I < 0.012 < 0.012 < 0.012 Total Protein 7.4 6.9 Albumin 4.0 3.9 Globulin 3.40 H 3.00 Albumin/Globulin 1.17 1.30 Ratio Lipase 80 Bedside Glucose 233 H Magnesium Level 2.2 Creatine Kinase 35 34 Creatine Kinase 0.6 0.7 Index Creatinine Kinase MB < 0.22 0.25 (Mass) Test 04/30/19 08:24 Bedside Glucose 280 H Subjective 24 Hr Interval Summary Free Text/Dictation Patient states her chest pain resolved but complaining of diarrhea. Exam/Review of Systems Exam Vitals Vital Signs Date Temp Pulse Resp B/P (MAP) Pulse Ox O2 O2 Flow FiO2 Time Delivery Rate 04/30/19 84 08:13 04/30/19 99.1 18 137/73 99 07:36 (94) 04/30/19 Room Air 01:22 Exam General: fatigued, no acute distress Neck: Supple, nontender, midline Respiratory: Clear to auscultation bilaterally. no wheezing Cardiovascular: regular rate and rhythm, no obvious murmurs Gastrointestinal: soft, nontender, nondistended, no rebound or distended, bowel sounds heard. Skin: No new skin lesions Results Results 24hrs Laboratory Tests Test 04/29/19 21:38 04/30/19 02:17 04/30/19 02:18 04/30/19 07:56 White Blood Count 10.5 # 9.9 Red Blood Count 3.98 L 3.86 L Hemoglobin 12.8 12.6 Hematocrit 38.5 37.2 Mean Corpuscular 96.7 96.4 Volume Mean Corpuscular 32.2 32.6 Hemoglobin Mean Corpuscular 33.2 33.9 Hemoglobin Concent Red Cell 12.3 12.4 Distribution Width Platelet Count 201 190 Mean Platelet Volume 8.9 8.7 Immature 0.500 H 0.200 Granulocytes % Neutrophils % 77.0 75.0 Lymphocytes % 13.5 L 12.6 L Monocytes % 8.5 11.7 H Eosinophils % 0.1 0.0 Basophils % 0.4 0.5 Nucleated Red Blood 0.0 0.0 Cells % Immature 0.050 H 0.020 Granulocytes # Neutrophils # 8.1 H 7.4 Lymphocytes # 1.4 1.3 Monocytes # 0.9 1.2 H Eosinophils # 0.0 0.0 Basophils # 0.0 0.1 Nucleated Red Blood 0.0 0.0 Cells # Prothrombin Time 13.4 Prothrombin Time 1.0 Ratio INR International 1.01 Normalized Ratio Activated 31.1 Partial Thromboplast Time Sodium Level 136 138 Potassium Level 3.9 4.2 Chloride Level 98 101 Carbon Dioxide Level 30 27 Anion Gap 8 10 Blood Urea Nitrogen 25 H 25 H Creatinine 1.06 H 1.00 Est Glomerular 52 L 55 L Filtrat Rate mL/min Glucose Level 224 H 230 H Calcium Level 9.2 8.9 Total Bilirubin 0.5 0.6 Direct Bilirubin 0.00 0.00 Indirect Bilirubin 0.5 0.6 Aspartate Amino 18 15 Transf (AST/SGOT) Alanine 23 25 Aminotransferase (AL T/SGPT) Alkaline Phosphatase 75 78 Troponin I < 0.012 < 0.012 < 0.012 Total Protein 7.4 6.9 Albumin 4.0 3.9 Globulin 3.40 H 3.00 Albumin/Globulin 1.17 1.30 Ratio Lipase 80 Bedside Glucose 233 H Magnesium Level 2.2 Creatine Kinase 35 34 Creatine Kinase 0.6 0.7 Index Creatinine Kinase MB < 0.22 0.25 (Mass) Test 04/30/19 08:24 Bedside Glucose 280 H Medications Medication Current Medications Acetaminophen (Tylenol Tab) 650 mg ER BRIDGE PRN PO .MILD PAIN 1-3 OR TEMP Last administered on 04/30/19at 02:12; Admin Dose 650 MG; Start 04/29/19 at 23:30; Stop 04/30/19 at 23:29 IV Flush (NS 3 ml) 3 ml PER PROTOCOL IV ; Start 04/30/19 at 02:00 Ondansetron HCl (Zofran Inj) 4 mg Q6H PRN IV NAUSEA/VOMITING; Start 04/30/19 at 02:00 Nitroglycerin (Nitroglycerin (Sl Tab) 0.4 Mg) 1 tab Q5M PRN SL .CHEST PAIN; Start 04/30/19 at 02:00 Acetaminophen (Tylenol Tab) 650 mg Q6H PRN PO .PAIN 1-3 OR TEMP; Start 04/30/19 at 02:00 Albuterol/ Ipratropium (Duoneb) 3 ml Q2H RESP THERAPY PRN HHN SHORTNESS OF BREATH; Start 04/30/19 at 02:00 Apixaban (Eliquis) 5 mg BID PO Last administered on 04/30/19at 08:26; Admin Dose 5 MG; Start 04/30/19 at 09:00 Escitalopram Oxalate (Lexapro) 10 mg DAILY PO Last administered on 04/30/19at 08:26; Admin Dose 10 MG; Start 04/30/19 at 09:00 Gabapentin (Neurontin) 300 mg BID PO Last administered on 04/30/19at 08:26; Admin Dose 300 MG; Start 04/30/19 at 09:00 Insulin Glargine (Lantus) 42 units DAILY@2000 SC ; Start 04/30/19 at 20:00 Losartan Potassium (Cozaar) 50 mg DAILY PO Last administered on 04/30/19at 08:28; Admin Dose 50 MG; Start 04/30/19 at 09:00 Metoprolol Succinate (Toprol Xl) 50 mg DAILY PO Last administered on 04/30/19at 08:27; Admin Dose 50 MG; Start 04/30/19 at 09:00 Trazodone HCl (Desyrel) 50 mg QHS PRN PO INSOMNIA; Start 04/30/19 at 02:00 Zolpidem Tartrate (Ambien) 5 mg HS MAY REPEAT X 1 PRN PO INSOMNIA; Start 04/30/19 at 02:30 Diagnostic Test (Pha) (Accu-Chek) 1 ea 02 XX Last administered on 04/30/19at 02:23; Admin Dose 1 EA; Start 04/30/19 at 02:00 Insulin Aspart (Novolog Insulin Pen) 7 unit WITH MEALS SC Last administered on 04/30/19at 10:17; Admin Dose 7 UNIT; Start 04/30/19 at 07:55 Insulin Aspart (Novolog Insulin Pen) NOVOLOG *MODERATE* ALGORITHM WITH MEALS BEDTIME SC Last administered on 04/30/19at 10:17; Admin Dose 8 UNIT; Start 04/30/19 at 07:55 Miscellaneous Information 1 ea NOTE XX ; Start 04/30/19 at 02:30 Glucose (Glutose) 15 gm Q15M PRN PO DECREASED GLUCOSE; Start 04/30/19 at 02:30 Glucose (Glutose) 22.5 gm Q15M PRN PO DECREASED GLUCOSE; Start 04/30/19 at 02:30 Dextrose (D50w Syringe) 25 ml Q15M PRN IV DECREASED GLUCOSE; Start 04/30/19 at 02:30 Dextrose (D50w Syringe) 50 ml Q15M PRN IV DECREASED GLUCOSE; Start 04/30/19 at 02:30 Glucagon (Glucagen) 1 mg Q15M PRN IM DECREASED GLUCOSE; Start 04/30/19 at 02:30 Glucose (Glutose) 15 gm Q15M PRN BUCCAL DECREASED GLUCOSE; Start 04/30/19 at 02:30 DERICK CAVAZOS MD Apr 30, 2019 11:10
[2019-04-30] MEDS ORDERED: DILTIAZEM 25 MG INJ IV ONE (15:30)
[2019-04-30] MEDS ORDERED: INSULIN LISPRO 18 UNIT SQ SCH (17:55)
[2019-04-30] MEDS: CIPROFLOXACIN 400MG/D5W 200 ML IVPB SCH ×2 (18:53→22:49)
[2019-04-30] MEDS: metroNIDAZOLE 500 MG/NS (PMX) 100 ML IVPB SCH ×2 (18:53→22:49)
[2019-04-30] MEDS ORDERED: INSULIN GLARGINE [LANTus] (100 UNITS/ML) SYG SC SCH (20:00)
[2019-05-01] VITALS (8 sets, daily range): BP systolic 126–147; BP diastolic 63–81; PULSE 55–82; RESP 17–18
[2019-05-01] MEDS: ACCU-CHEK XX SCH (02:33)
[2019-05-01] MEDS: metroNIDAZOLE 500 MG/NS (PMX) 100 ML IVPB SCH (05:51)
[2019-05-01] MEDS: INSULIN ASPART [NOVOLOG] 3 ML PEN SC SCH ×4 (08:00→12:15)
[2019-05-01] MEDS: CIPROFLOXACIN 400MG/D5W 200 ML IVPB SCH (08:26)
[2019-05-01] MEDS: ESCITALOPRAM 10 MG TAB PO SCH (08:27)
[2019-05-01] MEDS: APIXABAN 5 MG TABLET PO SCH (08:27)
[2019-05-01] MEDS: METOPROLOL (XL) 50 MG TAB PO SCH (08:27)
[2019-05-01] MEDS: LOSARTAN 50 MG TAB PO SCH (08:27)
[2019-05-01] MEDS: GABAPENTIN 300 MG CAP PO SCH (08:27)
--- NOTE | 2019-05-01 10:58 | PN ---
Date/Time of Note Date/Time of Note DATE: 05/01/19 TIME: 10:58 Assessment/Plan VTE Prophylaxis Risk score (from Nsg)>0 risk: 3 SCD applied (from Nsg): Yes Pharmacological prophylaxis: apixaban Lines/Catheters IV Catheter Type (from Nrsg): Saline Lock Urinary Cath still in place: No Assessment/Plan Assessment/Plan 1. Acute chest pain, resolved - patient with negative serial troponins - EKG without any ST changes - continue aspirin, statin, and BB - ECHO nl last month 2. SIRS, with fever and tachycardia- resolving - most likely UTI etiology - no longer having diarrhea - supportive care 3. Tachyarrhythmia- resolved - recent admission for SVT s/p cardioversion - Continue on Eliquis 4. Type 1 diabetes with hyperglycemia - uncontrolled. A1c from earlier this month noted - Insulin and adjust as needed 5. History of COPD - O2 as needed - Nebs PRN - no acute exacerbation noted 6. Depression - Continue home med 7. Disposition - Patient remains stable. Discussed waiting for urine culture sensitivities but requesting for discharge home Result Diagram: 05/01/19 0609 05/01/19 0609 Results 24hrs Laboratory Tests Test 04/30/19 12:53 04/30/19 18:40 04/30/19 20:36 05/01/19 00:25 Bedside Glucose 142 343 H 311 H Urine Color YELLOW Urine Clarity CLOUDY A Urine pH 5.0 Urine Specific 1.018 [place] Urine Ketones NEGATIVE Urine Nitrite NEGATIVE Urine Bilirubin NEGATIVE Urine Urobilinogen NEGATIVE Urine Leukocyte 3+ H Esterase Urine Microscopic 56 H RBC Urine Microscopic > 182 H WBC Urine Bacteria FEW A Urine Hyaline Casts FEW A Urine Granular Casts FEW A Urine Mucus FEW A Urine Hemoglobin 3+ H Urine Glucose 1+ H Urine Total Protein 2+ H Test 05/01/19 02:03 05/01/19 06:09 05/01/19 07:58 Bedside Glucose 140 204 White Blood Count 9.0 Red Blood Count 3.88 L Hemoglobin 12.5 Hematocrit 36.9 L Mean Corpuscular 95.1 Volume Mean Corpuscular 32.2 Hemoglobin Mean Corpuscular 33.9 Hemoglobin Concent Red Cell 12.0 Distribution Width Platelet Count 178 Mean Platelet Volume 9.2 Immature 0.300 Granulocytes % Neutrophils % 66.5 Lymphocytes % 18.1 Monocytes % 14.2 H Eosinophils % 0.3 Basophils % 0.6 Nucleated Red Blood 0.0 Cells % Immature 0.030 Granulocytes # Neutrophils # 6.0 Lymphocytes # 1.6 Monocytes # 1.3 H Eosinophils # 0.0 Basophils # 0.1 Nucleated Red Blood 0.0 Cells # Sodium Level 137 Potassium Level 3.8 Chloride Level 102 Carbon Dioxide Level 28 Anion Gap 7 Blood Urea Nitrogen 27 H Creatinine 1.01 H Est Glomerular 55 L Filtrat Rate mL/min Glucose Level 165 Hemoglobin A1c 7.9 H Calcium Level 8.7 Phosphorus Level 3.8 Magnesium Level 2.4 Subjective 24 Hr Interval Summary Free Text/Dictation Patient states diarrhea resolved and no longer experiencing chest pain. No acute overnight events. Exam/Review of Systems Exam Vitals Vital Signs Date Temp Pulse Resp B/P (MAP) Pulse Ox O2 O2 Flow FiO2 Time Delivery Rate 05/01/19 79 08:01 05/01/19 98.0 17 126/63 94 07:35 (84) 04/30/19 Room Air 01:22 Intake and Output 04/30/19 04/30/19 05/01/19 1515:00 23:00 07:00 IntakeIntake Total 1320 ml 750 ml BalanceBalance 1320 ml 750 ml Exam General: no acute distress. awake and answering questions appropriately Neck: Supple, nontender, midline Respiratory: Clear to auscultation bilaterally. no wheezing Cardiovascular: regular rate and rhythm, no obvious murmurs Gastrointestinal: soft, nontender, nondistended, no rebound or distended, bowel sounds heard. Skin: No new skin lesions Results Results 24hrs Laboratory Tests Test 04/30/19 12:53 04/30/19 18:40 04/30/19 20:36 05/01/19 00:25 Bedside Glucose 142 343 H 311 H Urine Color YELLOW Urine Clarity CLOUDY A Urine pH 5.0 Urine Specific 1.018 [place] Urine Ketones NEGATIVE Urine Nitrite NEGATIVE Urine Bilirubin NEGATIVE Urine Urobilinogen NEGATIVE Urine Leukocyte 3+ H Esterase Urine Microscopic 56 H RBC Urine Microscopic > 182 H WBC Urine Bacteria FEW A Urine Hyaline Casts FEW A Urine Granular Casts FEW A Urine Mucus FEW A Urine Hemoglobin 3+ H Urine Glucose 1+ H Urine Total Protein 2+ H Test 05/01/19 02:03 05/01/19 06:09 05/01/19 07:58 Bedside Glucose 140 204 White Blood Count 9.0 Red Blood Count 3.88 L Hemoglobin 12.5 Hematocrit 36.9 L Mean Corpuscular 95.1 Volume Mean Corpuscular 32.2 Hemoglobin Mean Corpuscular 33.9 Hemoglobin Concent Red Cell 12.0 Distribution Width Platelet Count 178 Mean Platelet Volume 9.2 Immature 0.300 Granulocytes % Neutrophils % 66.5 Lymphocytes % 18.1 Monocytes % 14.2 H Eosinophils % 0.3 Basophils % 0.6 Nucleated Red Blood 0.0 Cells % Immature 0.030 Granulocytes # Neutrophils # 6.0 Lymphocytes # 1.6 Monocytes # 1.3 H Eosinophils # 0.0 Basophils # 0.1 Nucleated Red Blood 0.0 Cells # Sodium Level 137 Potassium Level 3.8 Chloride Level 102 Carbon Dioxide Level 28 Anion Gap 7 Blood Urea Nitrogen 27 H Creatinine 1.01 H Est Glomerular 55 L Filtrat Rate mL/min Glucose Level 165 Hemoglobin A1c 7.9 H Calcium Level 8.7 Phosphorus Level 3.8 Magnesium Level 2.4 Medications Medication Current Medications IV Flush (NS 3 ml) 3 ml PER PROTOCOL IV ; Start 04/30/19 at 02:00 Ondansetron HCl (Zofran Inj) 4 mg Q6H PRN IV NAUSEA/VOMITING; Start 04/30/19 at 02:00 Nitroglycerin (Nitroglycerin (Sl Tab) 0.4 Mg) 1 tab Q5M PRN SL .CHEST PAIN; Start 04/30/19 at 02:00 Acetaminophen (Tylenol Tab) 650 mg Q6H PRN PO .PAIN 1-3 OR TEMP; Start 04/30/19 at 02:00 Albuterol/ Ipratropium (Duoneb) 3 ml Q2H RESP THERAPY PRN HHN SHORTNESS OF BREATH; Start 04/30/19 at 02:00 Apixaban (Eliquis) 5 mg BID PO Last administered on 05/01/19at 08:27; Admin Dose 5 MG; Start 04/30/19 at 09:00 Escitalopram Oxalate (Lexapro) 10 mg DAILY PO Last administered on 05/01/19at 08:27; Admin Dose 10 MG; Start 04/30/19 at 09:00 Gabapentin (Neurontin) 300 mg BID PO Last administered on 05/01/19at 08:27; Admin Dose 300 MG; Start 04/30/19 at 09:00 Insulin Glargine (Lantus) 42 units DAILY@2000 SC Last administered on 04/30/19 21:26; Admin Dose 42 UNITS; Start 04/30/19 at 20:00 Losartan Potassium (Cozaar) 50 mg DAILY PO Last administered on 05/01/19at 08:27; Admin Dose 50 MG; Start 04/30/19 at 09:00 Metoprolol Succinate (Toprol Xl) 50 mg DAILY PO Last administered on 05/01/19at 08:27; Admin Dose 50 MG; Start 04/30/19 at 09:00 Trazodone HCl (Desyrel) 50 mg QHS PRN PO INSOMNIA; Start 04/30/19 at 02:00 Zolpidem Tartrate (Ambien) 5 mg HS MAY REPEAT X 1 PRN PO INSOMNIA; Start 04/30/19 at 02:30 Diagnostic Test (Pha) (Accu-Chek) 1 ea 02 XX Last administered on 05/01/19at 02:33; Admin Dose 1 EA; Start 04/30/19 at 02:00 Insulin Aspart (Novolog Insulin Pen) 7 unit WITH MEALS SC Last administered on 05/01/19at 08:01; Admin Dose 7 UNIT; Start 04/30/19 at 07:55 Insulin Aspart (Novolog Insulin Pen) NOVOLOG *MODERATE* ALGORITHM WITH MEALS BEDTIME SC Last administered on 05/01/19at 08:00; Admin Dose 4 UNIT; Start 04/30/19 at 07:55 Miscellaneous Information 1 ea NOTE XX ; Start 04/30/19 at 02:30 Glucose (Glutose) 15 gm Q15M PRN PO DECREASED GLUCOSE; Start 04/30/19 at 02:30 Glucose (Glutose) 22.5 gm Q15M PRN PO DECREASED GLUCOSE; Start 04/30/19 at 02:30 Dextrose (D50w Syringe) 25 ml Q15M PRN IV DECREASED GLUCOSE; Start 04/30/19 at 02:30 Dextrose (D50w Syringe) 50 ml Q15M PRN IV DECREASED GLUCOSE; Start 04/30/19 at 02:30 Glucagon (Glucagen) 1 mg Q15M PRN IM DECREASED GLUCOSE; Start 04/30/19 at 02:30 Glucose (Glutose) 15 gm Q15M PRN BUCCAL DECREASED GLUCOSE; Start 04/30/19 at 02:30 Ciprofloxacin/ Dextrose 200 ml @ 200 mls/hr Q12 IVPB Last administered on 05/01/19at 08:26; Admin Dose 200 MLS/HR; Start 04/30/19 at 16:30 Metronidazole 100 ml @ 100 mls/hr Q8 IVPB Last administered on 04/30/19at 22:49; Admin Dose 100 MLS/HR; Start 04/30/19 at 15:30 DERICK CAVAZOS MD May 01, 2019 10:58
[2019-05-01] MEDS ORDERED: CIPR500T4 PO (15:54)
--- NOTE | 2019-05-01 15:57 | PDOCDIS ---
Discharge Instructions DIAGNOSIS Discharge Diagnosis 1. Acute chest pain, resolved 2. SIRS secondary to UTI 3. Tachyarrhythmia 4. Type 1 diabetes with hyperglycemia 5. History of COPD 6. Depression CONDITION [id number] Patient Condition: [id number] Stable HOME CARE INSTRUCTIONS: [id number] Diet Instructions: [id number] Low Fat /Cholesterol ACTIVITY: [id number] Activity Restrictions: [id number] No Restrictions FOLLOW UP/APPOINTMENTS Follow-up Plan 1. Follow up with your primary care physician in 1-2 weeks 2. Continue all medications as prescribed. 3. You will need to continue on Ciprofloxacin for 5 more days to treat your urinary tract infection. Next dose is tomorrow morning. 4. If experiencing any acute issues, please go to the nearest emergency department 1. Siga con martin mdico de atencin primaria en 1-2 semanas 2. Contine con todos los medicamentos segn lo prescrito. 3. Usted tendr que continuar en Ciprofloxacino bartolo 5 servin ms para tratar martin infeccin del tracto urinario. La prxima dosis es maana por la maana. 4. Si experimenta algn problema guadalupe, vaya al departamento de emergencias DERICK Russell MD May 01, 2019 15:57
--- NOTE | 2019-05-01 19:24 | DS ---
Date/Time of Note Date/Time of Note DATE: 05/01/19 TIME: : Discharge Summary Admission/Discharge Info Admit Date/Time May 01, 2019 at 12:04 Discharge Date/Time May 01, 2019 at 17:44 Discharge Diagnosis 1. Acute chest pain, resolved 2. SIRS secondary to UTI 3. Tachyarrhythmia 4. Type 1 diabetes with hyperglycemia 5. History of COPD 6. Depression Patient Condition: Stable Hx of Present Illness Patient is a 64-year-old female with a history of type 1 diabetes, COPD, depression, SVT status post recent cardioversion. Patient was brought from assisted living facility for a chest pain. Patient was given NTG by EMS with complete resolution of chest pain. Patient was admitted here about 3 weeks ago for SVT, which did not respond to medical management. She had cardioversion with conversion to NSR. When she presented to ER today, vitals were stable. Was admitted to telemetry unit however, patient became febrile with a temperature as high as 102.3. Chest x-ray shows shallow inspiration with minimal right basilar subsegmental atelectasis. Hospital Course Patient was admitted for evaluation of chest pain and serial troponins were negative. Patient also had resolution of chest pain after given one dose of nitro in the ED. Patient did spike a fevers and boudreaux cultures were ordered. Patient was complaining of abdominal pain with diarrhea and started on antibiotics for colitis symptoms, She was found to have UTI and continued on antibiotics. Patient's diarrhea resolved and did not have any further episodes of chest pain. Patients presenting symptoms resolved and she was discharged home in stable condition. Home Meds Active Scripts Ciprofloxacin Hcl* (Ciprofloxacin Hcl*) 500 Mg Tablet, 500 MG PO BID for 5 Days, #10 TAB Prov:DERICK CAVAZOS MD 05/01/19 Apixaban* (Eliquis*) 5 Mg Tablet, 5 MG PO BID for 90 Days, #45 TAB 3 Refills Prov:SUSHILA GRIMES MD 04/09/19 Metoprolol Succinate* (Toprol XL*) 50 Mg Tab.er.24h, 50 MG PO DAILY for 90 Days, #90 TAB Prov:SUSHILA GRIMES MD 04/09/19 Reported Medications Trazodone Hcl* (Trazodone Hcl*) 50 Mg Tablet, 50 MG PO QHS PRN for INSOMNIA, #30 TAB 04/06/19 Temazepam* (Temazepam*) 30 Mg Capsule, 30 MG PO HS PRN for INSOMNIA, CAP 04/06/19 Insulin Lispro (Humalog Kwikpen U-100) 100 Unit/1 Ml Insuln.pen, 18 UNIT SQ WITH DINNER, EA 04/06/19 Escitalopram Oxalate* (Lexapro*) 10 Mg Tablet, 10 MG PO DAILY, #30 TAB 04/06/19 Gabapentin* (Gabapentin*) 300 Mg Capsule, 300 MG PO BID, #60 CAP 04/06/19 Insulin Detemir (Levemir Flextouch) 100 Unit/1 Ml Insuln.pen, 42 UNIT SQ QHS, EA 04/06/19 Insulin Lispro (Humalog Kwikpen U-100) 100 Unit/1 Ml Insuln.pen, 15 UNIT SQ WITH BREAKFAST, EA 04/06/19 Losartan Potassium* (Losartan Potassium*) 50 Mg Tablet, 50 MG PO DAILY, TAB 04/06/19 Follow-up Plan 1. Follow up with your primary care physician in 1-2 weeks 2. Continue all medications as prescribed. 3. You will need to continue on Ciprofloxacin for 5 more days to treat your urinary tract infection. Next dose is tomorrow morning. 4. If experiencing any acute issues, please go to the nearest emergency department 1. Siga con martin mdico de atencin primaria en 1-2 semanas 2. Contine con todos los medicamentos segn lo prescrito. 3. Usted tendr que continuar en Ciprofloxacino bartolo 5 servin ms para tratar martin infeccin del tracto urinario. La prxima dosis es maana por la maana. 4. Si experimenta algn problema guadalupe, vaya al departamento de emergencias ms main Primary Care Provider Not On Staff Doctor Time spent on discharge: > 30 minutes Pending Labs Laboratory Tests Test 04/30/19 20:36 05/01/19 00:25 05/01/19 02:03 05/01/19 06:09 Bedside 311 140 Glucose mg/dL (70-220) mg/dL (70-220) Urine Color YELLOW (YELLOW ) Urine Clarity CLOUDY (CLEAR) Urine pH 5.0 (5.0-9.0) Urine Specific 1.018 (1.003-1 [place] .030) Urine Ketones NEGATIVE mg/dL (NEGATIV E) Urine Nitrite NEGATIVE mg/dL (NEGATIV E) Urine NEGATIVE Bilirubin mg/dL (NEGATIV E) Urine NEGATIVE Urobilinogen mg/dL (NEGATIV E) Urine Leukocyte 3+ Esterase [place]/ul (NEGATI VE) Urine 56 /HPF (0-5) Microscopic RBC Urine > 182 Microscopic /HPF (0-5) WBC Urine Bacteria FEW /HPF (NONE SEEN) Urine Hyaline FEW /HPF Casts (NONE SEEN) Urine Granular FEW /HPF Casts (NONE SEEN) Urine Mucus FEW /HPF (NONE SEEN) Urine 3+ Hemoglobin mg/dL (NEGATIV E) Urine Glucose 1+ mg/dL (NEGATIV E) Urine Total 2+ Protein mg/dl (NEGATIV E) White Blood 9.0 Count 10^3/ul (4.8-1 0.8) Red Blood 3.88 Count 10^6/ul (4.20- 5.40) Hemoglobin 12.5 g/dl (12.0-16. 0) Hematocrit 36.9 % (37.0-47.0) Mean 95.1 Corpuscular fl (82.0-101.0 Volume ) Mean 32.2 Corpuscular pg (29.0-33.0) Hemoglobin Mean 33.9 Corpuscular g/dl (32.0-37. Hemoglobin Conc 0) ent Red Cell 12.0 Distribution % (11.5-14.5) Width Platelet Count 178 10^3/UL (140-4 15) Mean Platelet 9.2 Volume fl (7.4-10.4) Immature 0.300 Granulocytes % % (0.001-0.429 ) Neutrophils % 66.5 % (39.0-77.0) Lymphocytes % 18.1 % (15.0-51.0) Monocytes % 14.2 % (0.0-11.0) Eosinophils % 0.3 % (0.0-7.0) Basophils % 0.6 % (0.0-2.0) Nucleated Red 0.0 Blood Cells % /100WBC (0.0-0 .0) Immature 0.030 Granulocytes # 10^3/ul (0.0-0 .031) Neutrophils # 6.0 10^3/ul (1.6-7 .5) Lymphocytes # 1.6 10^3/ul (0.8-2 .9) Monocytes # 1.3 10^3/ul (0.3-0 .9) Eosinophils # 0.0 10^3/ul (0.0-0 .5) Basophils # 0.1 10^3/ul (0.0-0 .1) Nucleated Red 0.0 Blood Cells # 10^3/ul (0.0-0 .0) Sodium Level 137 mmol/L (135-14 4) Potassium 3.8 Level mmol/L (3.5-5. 1) Chloride Level 102 mmol/L (97-110 ) Carbon Dioxide 28 Level mmol/L (21-31) Anion Gap 7 (5-13) Blood Urea 27 Nitrogen mg/dl (7-20) Creatinine 1.01 mg/dl (0.44-1. 00) Est Glomerular 55 Filtrat mL/min (>60) Rate mL/min Glucose Level 165 mg/dl (70-220) Hemoglobin A1c 7.9 % (0-5.9) Calcium Level 8.7 mg/dl (8.4-10. 2) Phosphorus 3.8 Level mg/dl (2.5-4.9 ) Magnesium 2.4 Level mg/dl (1.7-2.5 ) Test 05/01/19 07:58 05/01/19 12:13 Bedside 204 139 Glucose mg/dL (70-220) mg/dL (70-220) DERICK CAVAZOS MD May 01, 2019 19:24
== END 2019-05-01 17:44 | disposition home or self-care (01) | DRG 313 ==
LOC: E/R 21:14 → TEL 23:29 → OBSVTOIN 05-01 12:04
PROVIDERS: ADMIT Internal Medicine; ATTEND Internal Medicine
DX: R07.9 Chest pain, unspecified (principal); R65.10 Systemic inflammatory response syndrome (SIRS) of non-infectious origin without acute organ dysfunction; E10.65 Type 1 diabetes mellitus with hyperglycemia; N39.0 Urinary tract infection, site not specified; J44.9 Chronic obstructive pulmonary disease, unspecified; R00.0 Tachycardia, unspecified; F32.9 Major depressive disorder, single episode, unspecified; Z88.0 Allergy status to penicillin; Z91.048 Other nonmedicinal substance allergy status; Z79.4 Long term (current) use of insulin
CPT/HCPCS: 36415; 71045; 80048; 80053; 81001; 82550; 82553; 82962; 83036; 83690; 83735; 84100; 84484; 85025; 85610; 85730; 87086; 93005; G0378; J0744; J1815